=== PATIENT | male | born 1930 | race Caucasian/White ===

== ENCOUNTER → 2016-11-10 | Outpatient (REF) | payer MEDICARE, OTHER ==
[~2016-11-10] MED LIST: /ASCO250TA OR; /FENO14TA PO; /TAMS4CA PO; ALLO100T PO; ALLO300T2 PO; ASPI325T PO; ASPI81TA85 PO; ATEN50TA2 PO; CRES5TAB PO; DIGO0.126 OR; DILA100C PO; ENAL20TA PO; GLIP5TAB2 PO; MAXZTA PO; METF1000 PO; NICA20CA OR; OMEP40CA2 PO; SENO8.6T9 OR; TRIAMTERENE PO; TYLE325T5 PO
== END ==
LOC: M SFHCPLAZ 11:51
PROVIDERS: ATTEND Dermatology
DX: C44.519 Basal cell carcinoma of skin of other part of trunk (principal)
CPT/HCPCS: 11100; 88305; G0463

== ENCOUNTER → 2016-12-15 | Outpatient (REF) | payer MEDICARE, OTHER ==
[2016-12-15 16:10] LABS: FREE T4 0.78 NG/DL (0.76-1.46)
== END | disposition home or self-care (01) ==
LOC: M SFHCPLAZ 12:45
PROVIDERS: ATTEND Family Medicine
DX: I73.00 Raynaud's syndrome without gangrene (principal); E11.9 Type 2 diabetes mellitus without complications; E78.5 Hyperlipidemia, unspecified

== ENCOUNTER → 2016-12-21 | Outpatient (REF) | payer MEDICARE, OTHER | LOC: M LAB REF 16:23 | PROVIDERS: ATTEND Surgery | DX: C44.519 Basal cell carcinoma of skin of other part of trunk (principal) ==

== ENCOUNTER → 2017-02-25 | Outpatient (REF) | payer MEDICARE, OTHER ==
[2017-02-25 16:44] LABS: CALCIUM LEVEL 9.2 MG/DL (8.8-10.2); CREATININE FOR GFR 1.89 MG/DL (0.70-1.30); GLOMERULAR FILTRATION RATE 36.2 (>35); POTASSIUM SERUM 4.2 MEQ/L (3.5-5.1)
== END ==
LOC: M SFHCPLAZ 12:57
PROVIDERS: ATTEND Family Medicine
DX: R60.0 Localized edema (principal)
CPT/HCPCS: 36415; 80048; 83880; G0463

== ENCOUNTER → 2017-03-09 | Outpatient (REF) | payer MEDICARE, OTHER ==
[2017-03-09 17:39] LABS: CALCIUM LEVEL 8.4 MG/DL (8.8-10.2); CREATININE FOR GFR 1.95 MG/DL (0.70-1.30); GLOMERULAR FILTRATION RATE 34.9 (>35); POTASSIUM SERUM 3.6 MEQ/L (3.5-5.1)
== END ==
LOC: M SFHCPLAZ 14:46
PROVIDERS: ATTEND Family Medicine
DX: I87.8 Other specified disorders of veins (principal)
CPT/HCPCS: 36415; 80048; G0463

== ENCOUNTER → 2017-05-03 | Outpatient (REF) | payer MEDICARE, BC, OTHER ==
[~2017-05-03] MED LIST changes: +ASCO250T PO; +BETI1SOL OU; +CHLO50TA PO; +FEBU40TA PO; +FERR1TAB8 PO; +FLOM5CAP PO; +MAG400TA PO; +METF500T13 PO; +ROSU10TA2 PO; +SPIR25TA2 PO; +TRAV04OPD OU; +XARE15TA PO
[2017-05-03 18:28] LABS: CALCIUM LEVEL 8.8 MG/DL (8.8-10.2); CREATININE FOR GFR 1.58 MG/DL (0.70-1.30); GLOMERULAR FILTRATION RATE 44.4 (>35); POTASSIUM SERUM 3.5 MEQ/L (3.5-5.1)
== END ==
LOC: M SFHCPLAZ 14:20
PROVIDERS: ATTEND Family Medicine
DX: R60.0 Localized edema (principal)
CPT/HCPCS: 80048; 83880; G0463

== ENCOUNTER 2017-07-06 12:01 | Inpatient (IN) | payer MEDICARE, BC, OTHER ==
[~2017-07-06] VITALS: Ht 182.9 cm; Wt 92.8 kg
[2017-07-06] MEDS: FEBUXOSTAT 40 MG TABLET (ULORIC) PO SCH (09:00)
[2017-07-06] MEDS: TIMOLOL MALEATE 0.25% OPHTH SOLN 5 ML OU SCH (09:00)
[~2017-07-06 12:01] MED LIST changes: -ASCO250T PO; -BETI1SOL OU; -CHLO50TA PO; -FEBU40TA PO; -FERR1TAB8 PO; -FLOM5CAP PO; -MAG400TA PO; -METF500T13 PO; -ROSU10TA2 PO; -SPIR25TA2 PO; -TRAV04OPD OU; -XARE15TA PO
[2017-07-06] MEDS ORDERED: NS 500 ML IV ONE ×2 (12:30→14:00)
[2017-07-06] MEDS ORDERED: ACETAMINOPHEN TAB 650MG DOSE (2X325MG) PO ONE (12:30)
[2017-07-06 13:05] LABS: ADD MORPHOLOGY? YES; BASO % 0.1 % (0.0-1.0); EOS % 0.3 % (0.0-3.0); LARGE UNSTAINED CELL # 0.1 K/mm3 (0.0-0.4); LARGE UNSTAINED CELL % 0.5 % (0.0-4.0); LYMPH # 0.1 K/mm3 (1.5-4.5); LYMPH % 1.2 % (24.0-44.0); MEAN CORPUSCULAR HEMOGLOBIN 22.1 pg (27.0-33.0); MEAN CORPUSCULAR HGB CONC 30.6 g/dl (32.0-36.5); MEAN CORPUSCULAR VOLUME 72.3 fl (80.0-96.0); MONO # 0.4 K/mm3 (0.0-0.8); NEUTROPHILS # 9.7 K/mm3 (1.8-7.7); NEUTROPHILS % 93.9 % (36.0-66.0); PLATELET COUNT, AUTOMATED 129 k/mm3 (150-450); RED CELL DISTRIBUTION WIDTH 17.9 % (11.5-14.5); WHITE BLOOD COUNT 10.4 K/mm3 (4.0-10.0)
[2017-07-06 13:06] LABS: INR 1.64
--- NOTE | 2017-07-06 13:18 | REP ---
Chest two views HISTORY: Sepsis Comparison: 02/18/2014 The lungs are clear. The cardiac silhouette is enlarged. The pulmonary vasculature is normal in appearance. The bony structure is intact. A cardiac pacemaker is present. IMPRESSION: Cardiomegaly. Signed by Kory Montana MD 07/06/2017 01:10 P
[2017-07-06 13:26] LABS: ALBUMIN 3.6 GM/DL (3.2-5.2); ALBUMIN/GLOBULIN RATIO 1.16 (1.00-1.93); ALKALINE PHOSPHATASE 113 U/L (45-117); ALT/SGPT 32 U/L (12-78); ANION GAP 11 MEQ/L (8-16); AST/SGOT 22 U/L (15-37); BILIRUBIN,DIRECT 0.3 MG/DL (0.0-0.2); BILIRUBIN,TOTAL 0.9 MG/DL (0.2-1.0); BLOOD UREA NITROGEN 61 MG/DL (7-18); CARBON DIOXIDE LEVEL 24 MEQ/L (21-32); CHLORIDE LEVEL 107 MEQ/L (98-107); CREATININE FOR GFR 2.42 MG/DL (0.70-1.30); GLOMERULAR FILTRATION RATE 27.1 (>35); GLUCOSE, FASTING 223 MG/DL (83-110); POTASSIUM SERUM 3.5 MEQ/L (3.5-5.1); SODIUM LEVEL 142 MEQ/L (136-145); TOTAL PROTEIN 6.7 GM/DL (6.4-8.2)
[2017-07-06] MEDS ORDERED: XARE15TA PO (13:26)
[2017-07-06] MEDS ORDERED: CHLO50TA PO (13:26)
[2017-07-06] MEDS ORDERED: FEBU40TA PO (13:26)
[2017-07-06] MEDS ORDERED: TRAV04OPD OU (13:28)
[2017-07-06] MEDS ORDERED: SPIR25TA2 PO (13:28)
[2017-07-06] MEDS ORDERED: BETI1SOL OU (13:28)
[2017-07-06] MEDS ORDERED: METF500T13 PO (13:28)
[2017-07-06 13:29] LABS: MICROCYTOSIS 2+
--- NOTE | 2017-07-06 13:40 | REP ---
RIGHT FOOT SERIES: Two views. HISTORY: Sepsis. Shock. COMPARISON STUDY: June 25, 2013. FINDINGS: There is a moderate hallux valgus deformity. Fairly extensive vascular calcification is noted. 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 These findings are unchanged from the comparison radiographs. No soft tissue gas is seen. 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 No soft tissue gas or acute bony erosive change is seen. Signed by Santo Bragg MD 07/06/2017 01:44 P
[2017-07-06] MEDS ORDERED: CLINDAMYCIN 600 MG in APPROPRIATE DILUENT 1 EA IV ONE (14:00)
--- NOTE | 2017-07-06 14:13 | HPEPDOC ---
Medical History and Physical Date of Admission 07/06/17 History and Physical ATTENDING: Dr. Campos PCP: Dr Hilda Pedersen Capacity Planner Dr Gottlieb Quill Skinner Dr Oneil CC: foot pain HPI: 87yoM with a past medical history significant for PVD, Afib, CHB with pacemaker, HTN, CKD4, who states he began to have foot pain around 2 AM. Pt states poor appetite, nausea, increased BS for past 3 days, generally feeling weak, and chills. No recent falls or injury. Denies any PRINGLE, CP, SOB, cough, palpitations, abdominal pain, V/D or changes in bowel or bladder habits. Upon presentation to the hospital the patient was found to have cellulitis Rt foot, thus the hospitalist team was consulted. PMHx: Rt heart failure TTE 2013. EF 65% MOD MR/MAC, Mild TR. Severe Pulm HTN Afib. On Xarelto. LBBB CHB/Pacemaker HTN LVH DM HLD Gout BPH/H/O TURP CKD4 Baseline 1.6-1.9 PVD Glaucoma H/O unsteady gait/fall/Seizure/SDH 2012 PSHX: Appendectomy 1958 Pacemaker 02/2014 TURP SOCHX: Resides in: [facility] Marital Status: Kids: 5 Tobacco use:denies ETOH: denies Illicit Drugs: Denies Recent travel: none Advanced directives: none FAMHX: Mother: Father: [place] Siblings: 2 sisters, 1 brother [place] Children: Alive, well Unexpected deaths due to medical reasons: None. ROS: As noted in HPI, otherwise 11pt ROS of systems reviewed and unremarkable. PE: GEN: 87yoM, appears stated age. Well-nourished, well developed. No acute distress. Alert and oriented x 3. HEENT: Normocephalic, atraumatic. Pupils are equal, round, and reactive to light. Extraocular movements are intact. No nystagmus appreciated. Sclera are nonicteric. Conjunctiva without injection. Nose midline. Nasal turbinates without bogginess. EACs both patent BL. TMs both visualized and shirley with good cone of light, no bulging or erythema. No facial asymmetry. Moist mucous membranes. Pharynx pink and moist, no cobblestoning. Neck supple, trachea midline. No lymphadenopathy or thyromegaly appreciated. CHEST: Regular rate and rhythm, +S1, +S2 2/6 systolic murmur noted LUNGS: Clear to auscultation bilaterally. No wheezes, rales, or rhonchi. Breathing appears symmetric and easy. Patient is speaking in full sentences. No accessory muscle use. ABD: Round, soft, non-tender, non-distended. +Bowel sounds throughout. No rebound or guarding. No costovertebral angle tenderness. EXT: Pulses 2+ bilaterally dorsalis pedis and radial. Trace distal pretib edema appreciated. SKIN: [place], dry, warm. Dorsal aspect Rt foot with erythema and warmth noted extending to mid pretibial area. Rt second toe with erythema and edema, black discoloration noted distally. NEURO: Alert and oriented x 3. Cranial nerves III-XII are intact. No focal deficits appreciated. CXR: The lungs are clear. The cardiac silhouette is enlarged. The pulmonary vasculature is normal in appearance. The bony structure is intact. A cardiac pacemaker is present. XR Rt foot There is a moderate hallux valgus deformity. Fairly extensive vascular calcification is noted. 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 These findings are unchanged from the comparison radiographs. No soft tissue gas is seen. No acute bony erosive change is seen EKG: paced BLOOD CULTURES: x 2 pending UC pending. WC pending LA 4.0 A&P: 87yoM with a past medical history significant for PVD, Afib, CHB with pacemaker, HTN, CKD4, who states he began to have foot pain around 2 AM. Pt states poor appetite, nausea, increased BS for past 3 days, generally feeling weak, and chills. No recent falls or injury. 1. The patient will be admitted to PCU for at least [address] Campos 's service. Pt is discussed with Dr Tellez. 2. Rt LE cellulitis. BC x 2 pending. WC pending. TTE pending. Recheck LA. Add ESR/CRP, monitor daily. U/S LEs pending. S/P 1 liter IVF in ED, continue gentle hydration NS at 80cc/hr. Initiate broad spectrum antibiotics IV Vanco/Zosyn. Request opinion from Dr Geller, he is aware and will see pt. 3. CKD4. Clt nephrology, Dr Jony aware and will see pt. IVF x 1 liter in ED , NS at 80cc/hr. Renal U/S pending. 4. H/O Rt HF. TTE pending. HOLD chlorthalidone/Aldactone for now. Caution with IVF, gentle hydration as above. 5. H/O MR/TR/Pulm HTN. TTE pending. 6. NIDDM. CC diet. Metformin on hold. SSI. 7. Chronic Afib/CHB/Pacemaker. PCU/TM. Xarelto held related to CKD. Heparin gtt initiated. 8. BPH. Flomax. 9. Glaucoma Continue outpt regimen. 10. Gout. On Uloric. 11. Anemia. Daily CBC. Fe studies/B12/folate pending. Stool OB pending. DVT prophylaxis. Heparin gtt initiated. The patient is a Full code Vital Signs Vital Signs Date Time Temp Pulse Resp B/P (MAP) Pulse Ox O2 Delivery O2 Flow Rate FiO2 07/06/17 14:00 101.2 91 16 106/52 (70) 95 Room Air Laboratory Data Labs 24H Laboratory Tests 2 07/06/17 12:46: White Blood Count 10.4H, Red Blood Count 3.79L, Hemoglobin 8.4L, Hematocrit 27.4L, Mean Corpuscular Volume 72.3L, Mean Corpuscular Hemoglobin 22.1L, Mean Corpuscular Hemoglobin Concent 30.6L, Red Cell Distribution Width 17.9H, Platelet Count 129L, Neutrophils (%) (Auto) 93.9H, Lymphocytes (%) (Auto) 1.2L, Monocytes (%) (Auto) 4.0, Eosinophils (%) (Auto) 0.3, Basophils (%) (Auto) 0.1, Neutrophils # (Auto) 9.7H, Lymphocytes # (Auto) 0.1L, Monocytes # (Auto) 0.4, Eosinophils # (Auto) 0.0, Basophils # (Auto) 0.0, Large Unclassified Cells % 0.5 , Large Unclassified Cells # 0.1, Platelet Estimate DECREASED, Microcytosis 2+, Prothrombin Time 19.9H, Prothromb Time International Ratio 1.64, Activated Partial Thromboplast Time 34.2, Anion Gap 11, Glomerular Filtration Rate 27.1L, Lactic Acid Level 4.0*H, Calcium Level 9.0, Aspartate Amino Transf (AST/SGOT) 22 , Alanine Aminotransferase (ALT/SGPT) 32, Alkaline Phosphatase 113, Total Bilirubin 0.9, Direct Bilirubin 0.3H, Total Creatine Kinase 26L, Creatine Kinase MB 1.0, Creatine Kinase MB Relative Index 3.84, Troponin I < 0.02, Total Protein 6.7, Albumin 3.6, Albumin/Globulin Ratio 1.16 CBC/BMP Laboratory Tests 07/06/17 12:46 Red Blood Count 3.79 L, Mean Corpuscular Volume 72.3 L, Mean Corpuscular Hemoglobin 22.1 L, Mean Corpuscular Hemoglobin Concent 30.6 L, Red Cell Distribution Width 17.9 H, Neutrophils (%) (Auto) 93.9 H, Lymphocytes (%) (Auto ) 1.2 L, Monocytes (%) (Auto) 4.0, Eosinophils (%) (Auto) 0.3, Basophils (%) ( Auto) 0.1, Neutrophils # (Auto) 9.7 H, Lymphocytes # (Auto) 0.1 L, Monocytes # ( Auto) 0.4, Eosinophils # (Auto) 0.0, Basophils # (Auto) 0.0 Microbiology Microbiology 07/06/17 Blood Culture, Received Pending 07/06/17 Blood Culture, Received Pending Home Medications Scheduled Ascorbic Acid (Ascorbic Acid) 250 Mg Tab, 250 MG PO BID Chlorthalidone (Chlorthalidone) 50 Mg Tab, 100 MG PO DAILY Febuxostat (Uloric) 40 Mg Tab, 40 MG PO DAILY Metformin Hydrochloride (Metformin HCl) 500 Mg Tab, 500 MG PO QPM DINNER Rivaroxaban (Xarelto) 15 Mg Tab, 15 MG PO QPM Rosuvastatin Calcium (Rosuvastatin Calcium) 10 Mg Tab, 10 MG PO QWEEK MONDAYS Spironolactone (Spironolactone) 25 Mg Tab, 25 MG PO DAILY Tamsulosin Hydrochloride (Flomax) 0.4 Mg Cap, 0.4 MG PO QHS Timolol Base (Betimol) 0.25 % Melody, 1 DROP OU DAILY Travoprost (Travatan Z) 50 Drop/2.5 Ml Soln, 1 DROP OU QHS Allergies Coded Allergies: Brimonidine (Verified Allergy, Unknown, 03/12/15) GME ATTESTATION GME ATTESTATION My preceptor for this patient encounter was physically present in the building during the encounter and was fully available. As needed, all aspects of the patient interview, examination, medical decision making process, and medical care plan development were reviewed and approved by the preceptor. Preceptor is aware and concurs with the plan as stated in the body of this note and will attest to such by his/her cosignature. ATTENDING NOTE I have both independently examined this patient as well as reviewed the note. I have discussed in detail with the resident the findings and plan of treatment as documented in the note. I will continue to follow the patient and offer further guidance to the patients care as necessary during this hospital stay. Jessica Corona MD Jul 06, 2017 14:13 ARSH TELLEZ MD Jul 07, 2017 12:09
[2017-07-06] MEDS ORDERED: ROSU10TA2 PO (14:32)
[2017-07-06] MEDS ORDERED: FLOM5CAP PO (14:32)
[2017-07-06] MEDS ORDERED: ASCO250T PO (14:32)
[2017-07-06] MEDS ORDERED: POTASSIUM CHLORIDE 10 MEQ SR TABLET PO ONE (14:45)
[2017-07-06] MEDS ORDERED: DEXTROSE 50% 50 ML SYRINGE IV PRN (15:00)
[2017-07-06] MEDS ORDERED: GLUCOSE 4 GM CHEW TABLET PO PRN (15:00)
[2017-07-06] MEDS ORDERED: PERCOCET 5MG/325MG TAB PO PRN (15:00)
[2017-07-06] MEDS ORDERED: HEPARIN SOD (PORCINE) 5000 UNITS/ML VIAL IV PRN (15:00)
[2017-07-06] MEDS ORDERED: MORPHINE 2 MG/ML 1ML SYRINGE IV PRN (15:00)
[2017-07-06] MEDS ORDERED: GLUCAGON FOR INJ 1 MG VIAL (J1610) SC PRN (15:00)
[2017-07-06] MEDS ORDERED: ONDANSETRON 4MG/2ML VIAL (J2405) IV PRN (15:00)
[2017-07-06] MEDS ORDERED: VANCOMYCIN HCL 750 MG, VIAL MATE ADAPTER 1 EACH in D5W 250 ML IV SCH (15:00)
[2017-07-06] MEDS: NS 1,000 ML IV SCH (15:05)
[2017-07-06 15:32] LABS: RETIC HEMOGLOBIN CONTENT CHr 24.1 PG (24-36); RETICULOCYTE ABSOLUTE ADVIA212 108 x10(9)/L (17-77)
[2017-07-06 15:39] LABS: REASON FOR REVIEW ANEMIA / RBC MORPH
--- NOTE | 2017-07-06 15:47 | REP ---
Right lower extremity Duplex Doppler venous ultrasound: Real time compression and duplex Doppler interrogation of the right lower extremity deep venous system is performed. The right common femoral, superficial femoral and popliteal veins are fully compressible with transducer pressure and demonstrate normal spontaneous and phasic flow, without evidence of deep venous thrombosis. Impression: No evidence of deep venous thrombosis of the right lower extremity femoral popliteal venous system. Incidental note is made of a right inguinal lymph node measuring 4.1 x 1.0 x 2.5 cm. Signed by Fred Fung MD 07/06/2017 03:40 P
[2017-07-06 15:50] LABS: PERCENT SATURATION 9.4 % (19.7-50.0)
[2017-07-06 15:58] LABS: FOLATE 15.3 NG/ML (>5.4)
--- NOTE | 2017-07-06 16:05 | REP ---
Urinary tract sonography: History: Renal insufficiency. Findings: Scanning at the level of the urinary bladder shows no abnormality. Renal cortical echogenicity pattern is increased consistent with chronic medical renal disease. No hydronephrosis is seen on either side. No masses seen. There is a cyst at the lower pole left kidney measuring 2.7 x 2.7 x 2.3 cm. There is a 1.1 cm cyst at the right mid kidney. These appears sonographically simple. Right renal dimensions are 11.4 x 5.9 x 5.1 cm. The left kidney measures 12.3 x 5.6 x 6.7 cm. No other abnormality. Impression: 1. Increased renal cortical echogenicity consistent with chronic medical renal disease. 2. There is a 2.7 cm cyst in the left kidney and a 1.1 cm cyst in the right kidney. Otherwise negative. Signed by Santo Bragg MD 07/06/2017 05:07 P
[2017-07-06 16:06] LABS: ERYTHROCYTE SEDIMENTATION RATE 32 mm/hr (0-30)
[2017-07-06] MEDS: PIPERACILLIN/TAZOBACTAM SOD 2.25 GM in D5W MINI-BAG PLUS 50 ML IV SCH (16:24)
--- NOTE | 2017-07-06 16:26 | PHACANCOPD ---
PHARMACY VANCOMYCIN DOSING Pt Demographics Demographics Patient Age:87 , Weight:90.900 , Gender: male Adjusted Body Weight Date: 07/06/17, Adjusted Body Weight: Kg Events Past 24 Hours Events Past 24 Hours: YES: Fever, Elevation in WBC, Pending Diagnostics Vancomycin Vancomycin indication: cellulitis Vancomycin Target Ranges: 15-20 mcg/ml Vancomycin Load Y/N: No Load Dose Date Time Vancomycin Load Dose: Date: Time: Vancomycin Dose Date: 07/06/17. Current Vancomycin Dose: [1g IV Q24H] Intermittent Dosing?: No Labs Labs Item Value Date Time White Blood Count 10.4 K/mm3 H 07/06/17 1246 Erythrocyte Sedimentation Rate 32 mm/hr H 07/06/17 1246 Lactic Acid Level 4.0 MMOL/L *H 07/06/17 1246 C-Reactive Protein, Quantitative 4.89 MG/DL H 07/06/17 1246 Creatinine 2.42 MG/DL H 07/06/17 1246 Micro Microbiology 07/06/17 Blood Culture, Received Pending 07/06/17 Blood Culture, Received Pending 07/06/17 Group A Streptococcus Screen (FREDERICK), Received Pending Creatinine Clearance Date:07/06/17. Estimated Creatinine Clearance: [~23ml/min]. Assessment and Plan Maintaining Current Dose?: Yes Reason for dose change: No Dose Change Pharmacist Note Pharmacist Note Date: 07/06/17. Pharmacist note: Day #1 empiric zosyn/vancomycin tx initiated at 1g IV Q24H for the treatment of RLE cellulitis - aiming for a goal trough of 15- 20mcg/ml. WBC is slightly elevated, LA and CRP are both elevated, and the patient is febrile. The patient has a PMH of stage IV CKD with a baseline scr ~ 1.58. No PMH of MRSA or vanco use here at [facility]. We will continue to monitor the patient and schedule a trough level accordingly. ARNOLDO [facility]X [facility] Jul 06, 2017 16:26
[2017-07-06] MEDS: LACTOBACILLUS ACIDOPHILUS CAP (BACID) PO SCH ×2 (16:33→20:33)
[2017-07-06] MEDS: HEPARIN DRIP 25,000 UNITS in APPROPRIATE DILUENT 1 EA IV SCH ×2 (16:42→20:32)
[2017-07-06] MEDS: VANCOMYCIN HCL 1,000 MG, VIAL MATE ADAPTER 1 EACH in D5W 250 ML IV SCH (17:00)
[2017-07-06] MEDS: HumaLOG INSULIN (NovoLOG) PER UNIT SC SCH ×2 (17:58→21:00)
[2017-07-06 19:26] VITALS: BP 129/59
[2017-07-06] MEDS: LATANOPROST 0.005% OPHTH SOLN 2.5 ML OU SCH (20:33)
[2017-07-06] MEDS: TAMSULOSIN 0.4 MG CAP PO SCH (20:33)
[2017-07-06] MEDS: ASCORBIC ACID 250 MG TAB PO SCH (20:33)
[2017-07-06] MEDS: FERROUS SULFATE 325MG TAB PO SCH (20:33)
[2017-07-06] MEDS: SENOKOT S TAB PO SCH (20:33)
[2017-07-06] MEDS: ACETAMINOPHEN TAB 650MG DOSE (2X325MG) PO PRN (21:45)
[2017-07-06 23:35] VITALS: BP 114/55
[2017-07-07] MEDS: PIPERACILLIN/TAZOBACTAM SOD 2.25 GM in D5W MINI-BAG PLUS 50 ML IV SCH ×3 (01:09→16:00)
[2017-07-07 03:56] VITALS: BP 109/53
[2017-07-07 04:34] LABS: ALBUMIN 2.9 GM/DL (3.2-5.2); ALBUMIN/GLOBULIN RATIO 1.07 (1.00-1.93); BILIRUBIN,TOTAL 0.8 MG/DL (0.2-1.0); CALCIUM LEVEL 8.2 MG/DL (8.8-10.2); CREATININE FOR GFR 2.31 MG/DL (0.70-1.30); GLOMERULAR FILTRATION RATE 28.6 (>35); MAGNESIUM LEVEL 1.7 MG/DL (1.8-2.4); POTASSIUM SERUM 3.3 MEQ/L (3.5-5.1); TOTAL PROTEIN 5.6 GM/DL (6.4-8.2)
[2017-07-07 04:44] LABS: MEAN CORPUSCULAR HEMOGLOBIN 22.6 pg (27.0-33.0); MEAN CORPUSCULAR HGB CONC 31.6 g/dl (32.0-36.5); MEAN CORPUSCULAR VOLUME 71.4 fl (80.0-96.0); RED CELL DISTRIBUTION WIDTH 17.9 % (11.5-14.5); WHITE BLOOD COUNT 11.3 K/mm3 (4.0-10.0)
[2017-07-07] MEDS ORDERED: POTASSIUM CHLORIDE 10 MEQ SR TABLET PO ONE (07:15)
[2017-07-07] MEDS: NS 1,000 ML IV SCH ×2 (07:40→14:45)
[2017-07-07 08:00] VITALS: BP 120/59
[2017-07-07] MEDS: LACTOBACILLUS ACIDOPHILUS CAP (BACID) PO SCH ×3 (08:18→21:27)
[2017-07-07] MEDS: HumaLOG INSULIN (NovoLOG) PER UNIT SC SCH ×4 (08:18→21:28)
[2017-07-07] MEDS: FEBUXOSTAT 40 MG TABLET (ULORIC) PO SCH (08:18)
[2017-07-07] MEDS: ASCORBIC ACID 250 MG TAB PO SCH (08:19)
[2017-07-07] MEDS: SENOKOT S TAB PO SCH ×2 (08:19→21:00)
[2017-07-07] MEDS: FERROUS SULFATE 325MG TAB PO SCH ×2 (08:19→21:27)
[2017-07-07] MEDS: TIMOLOL MALEATE 0.25% OPHTH SOLN 5 ML OU SCH (08:22)
--- NOTE | 2017-07-07 10:08 | CR ---
DATE OF CONSULTATION: 07/07/2017 LOCATION: 3rd floor, room 3230. CHIEF COMPLAINT: The patient states that he has a painful right foot and yesterday had considerable pain and went to the emergency room and was admitted for cellulitis of the toe and lower extremity. He is seen today on referral for evaluation. PAST MEDICAL HISTORY: 1. Right heart failure. 2. Atrial fibrillation. 3. Left bundle branch block. 4. Hypertension. 5. Diabetes. 6. Gout. 7. Glaucoma. PAST SURGICAL HISTORY: 1. Appendectomy. 2. Pacemaker insertion. 3. Transurethral resection of prostate (TURP). ALLERGIES: RIMANTADINE. AT HOME MEDICATIONS: - ascorbic acid 250 mg - chlorthalidone 50 mg - Uloric 40 mg - metformin 500 mg - Xarelto 15 mg - rosuvastatin 10 mg - spironolactone 25 mg - Fosamax 0.4 mg - timolol 0.25% solution - Travatan Z 50 mg drops Evaluation of the patient's right lower extremity reveals an ulceration present on the distal tip of the second toe with blister formation on the dorsal aspect of the second toe of the right foot, redness extends circumferentially around the toe. There is an area of ascending cellulitis on the lower aspect of the patient's right lower extremity extending dorsal past the ankle. The dorsalis pedis and posterior tibial pulses are not palpable on the lower extremities. The patient does have a popliteal pulse on the right side. The patient has a fixed valgus position of the subtalar joint with arthritis through the mid foot. Fixed and rigid hammertoe deformities are noted to digits 2, 3, 4, and 5 of the right foot. After appropriate time out, informed consent was obtained and signed by the patient. Utilizing a sterile curette, the distal aspect of the ulcer was debrided and approximately 0.5 mL of purulent discharge was expressed, utilizing a sterile curette, the necrotic tissue in that area, deep to the hyperkeratotic tissue, was debrided and sent to bacteriology for aerobic and anaerobic examination. After debridement, the ulcer measured 1.0 cm from medial to lateral, 0.5 cm from distal to proximal, and a depth of 0.2 cm. This did not extend down to the bone and there was a good granulation tissue base after debridement. There was a hyperkeratotic rim measuring 0.2 cm on the distal tip of the second toe. Dry sterile dressing was applied to the patient's right foot. Orders written for aerobic and anaerobic cultures, bandage changes to the patient's right extremity consisting of mupirocin with a dressing twice a day. His questions were answered. Thank you for this consultation.
[2017-07-07 12:00] VITALS: BP 117/58
[2017-07-07] MEDS ORDERED: MAGNESIUM OXIDE 400 MG TAB (MAG-OX) PO ONE (13:00)
[2017-07-07] MEDS: MUPIROCIN 2% OINT 22 GM TUBE TOP SCH (14:00)
[2017-07-07] MEDS: VANCOMYCIN HCL 1,000 MG, VIAL MATE ADAPTER 1 EACH in D5W 250 ML IV SCH (17:00)
[2017-07-07 20:00] VITALS: BP 133/63
[2017-07-07] MEDS: LATANOPROST 0.005% OPHTH SOLN 2.5 ML OU SCH (21:27)
[2017-07-07] MEDS: TAMSULOSIN 0.4 MG CAP PO SCH (21:27)
[2017-07-08] VITALS: BP 137/63
[2017-07-08] MEDS: PIPERACILLIN/TAZOBACTAM SOD 2.25 GM in D5W MINI-BAG PLUS 50 ML IV SCH ×3 (02:06→16:15)
[2017-07-08] MEDS: NS 1,000 ML IV SCH (03:30)
[2017-07-08 04:00] VITALS: BP 134/65
[2017-07-08] MEDS: MUPIROCIN 2% OINT 22 GM TUBE TOP SCH ×2 (04:56→09:00)
[2017-07-08] MEDS: ACETAMINOPHEN TAB 650MG DOSE (2X325MG) PO PRN (04:56)
--- NOTE | 2017-07-08 05:52 | ECGEPIP ---
Stationary ECG Study [facility] - ED Test Date: 2017-07-06 Pat Name: WILLIAM SHERWOOD Department: Room: - Gender: M Riding Instructor: jt : 1930 Requested By: DARIEN Herrmann Order Number: [id number] Reading MD: Manohar Rudd Measurements Intervals Ruby Rate: 88 P: NV: 0 QRS: -53 QRSD: 182 T: 114 QT: 433 QTc: 524 Interpretive Statements ELECTRONIC VENTRICULAR PACEMAKER SIMILAR TO 02/07/14 Electronically Signed On 07-08-2017 5:51:28 EDT by Manohar Rudd
[2017-07-08 05:53] LABS: MEAN CORPUSCULAR HEMOGLOBIN 22.5 pg (27.0-33.0); MEAN CORPUSCULAR HGB CONC 31.1 g/dl (32.0-36.5); MEAN CORPUSCULAR VOLUME 72.3 fl (80.0-96.0); RED CELL DISTRIBUTION WIDTH 18.5 % (11.5-14.5)
[2017-07-08 06:22] LABS: ALBUMIN 2.8 GM/DL (3.2-5.2); ALBUMIN/GLOBULIN RATIO 0.93 (1.00-1.93); BILIRUBIN,TOTAL 0.6 MG/DL (0.2-1.0); CALCIUM LEVEL 8.2 MG/DL (8.8-10.2); CREATININE FOR GFR 2.15 MG/DL (0.70-1.30); GLOMERULAR FILTRATION RATE 31.1 (>35); MAGNESIUM LEVEL 1.9 MG/DL (1.8-2.4); POTASSIUM SERUM 3.6 MEQ/L (3.5-5.1); TOTAL PROTEIN 5.8 GM/DL (6.4-8.2)
[2017-07-08] MEDS: HumaLOG INSULIN (NovoLOG) PER UNIT SC SCH ×4 (07:49→21:08)
[2017-07-08 08:00] VITALS: BP 118/64
[2017-07-08] MEDS: FERROUS SULFATE 325MG TAB PO SCH ×2 (09:00→21:03)
[2017-07-08] MEDS: LACTOBACILLUS ACIDOPHILUS CAP (BACID) PO SCH ×3 (09:00→21:03)
[2017-07-08] MEDS: TIMOLOL MALEATE 0.25% OPHTH SOLN 5 ML OU SCH (09:01)
[2017-07-08] MEDS: SENOKOT S TAB PO SCH ×2 (09:02→21:09)
[2017-07-08 09:56] LABS: RETIC HEMOGLOBIN CONTENT CHr 24.4 PG (24-36); RETICULOCYTE % 3.2 % (0.5-1.5)
[2017-07-08 10:13] LABS: PERCENT SATURATION 6.5 % (19.7-50.0)
--- NOTE | 2017-07-08 11:22 | PHACANCOPD ---
PHARMACY VANCOMYCIN DOSING Pt Demographics Demographics Patient Age:87 , Weight:91.300 , Gender: male Adjusted Body Weight Date: 07/06/17, Adjusted Body Weight: Kg Vancomycin Vancomycin indication: cellulitis Vancomycin Target Ranges: 15-20 mcg/ml Vancomycin Load Y/N: No Load Dose Date Time Vancomycin Load Dose: Date: Time: Vancomycin Dose Date: 07/06/17. Current Vancomycin Dose: [1g IV Q24H] Intermittent Dosing?: No Labs Micro Microbiology 07/06/17 Blood Culture - Preliminary, Resulted No growth after 24 hours . All specim... 07/06/17 Blood Culture - Preliminary, Resulted No growth after 24 hours . All specim... 07/06/17 Group A Streptococcus Screen ([facility]ERICK) - Final, Complete 07/06/17 Urine Culture - Final, Complete 07/07/17 Wound Culture, Received Pending 07/07/17 Anaerobic Culture, Received Pending Creatinine Clearance Date:07/06/17. Estimated Creatinine Clearance: [~23ml/min]. Assessment and Plan Maintaining Current Dose?: Yes Reason for dose change: No Dose Change Pharmacist Note Pharmacist Note 07/08/17: The patient's scr today is 2.15, which is improved from 2.42 on admit. I will schedule a trough to be drawn today at 1600, prior to the 3rd dose, to ensure adequate monitoring given the patient's kidney function. We will continue to monitor and make dose adjustments if needed. Date: 07/06/17. Pharmacist note: Day #1 empiric zosyn/vancomycin tx initiated at 1g IV Q24H for the treatment of RLE cellulitis - aiming for a goal trough of 15- 20mcg/ml. WBC is slightly elevated, LA and CRP are both elevated, and the patient is febrile. The patient has a PMH of stage IV CKD with a baseline scr ~ 1.58. No PMH of MRSA or vanco use here at [facility]. We will continue to monitor the patient and schedule a trough level accordingly. ARNOLDO MARX PHARMACY Jul 08, 2017 11:22
[2017-07-08 11:47] LABS: FOLATE 9.8 NG/ML (>5.4)
[2017-07-08 12:00] VITALS: BP 120/69
[2017-07-08] MEDS: FEBUXOSTAT 40 MG TABLET (ULORIC) PO SCH (14:37)
--- NOTE | 2017-07-08 19:18 | ECHO ---
DATE OF PROCEDURE: 07/08/2017 AGE: 87 GENDER: Male HEIGHT: 72 inches WEIGHT: 200 pounds BODY SURFACE AREA: 2.13 sq m INPATIENT: PCU, room 3230 REFERRING PHYSICIAN: Dr. Brown INDICATION: Fever. Known valvular heart disease. 2D MEASUREMENTS: RV: 5.7 cm LV: 5.1 cm Septum: 1.3 cm Posterior wall: 1.2 cm Aortic root: 3.5 cm LA: 5.4 cm LVEF: 60% DOPPLER MEASUREMENTS: AV: 0.9 m/s LVOT: 0.5 m/s LVOT diameter: 2.7 cm MV-E: 88 Early mitral deceleration time: 176 ms E prime: 8, E/A prime ratio: 11 PV: 0.5 m/s Pulmonary artery acceleration time: 77 ms RVSP: 70 mmHg. IVC: 2.7 cm COMMENTS: Normal sinus rhythm with atrial sensing and tracking with consistent ventricular paced QRS complexes having and LBBB configuration. Prominently dilated left and right atria. Normal left ventricular size. The right ventricle was moderately dilated. Left ventricle (LV) wall thickness was mildly increased symmetrically. On real-time imaging from the parasternal and projections there appear to be a localized mild septal hypokinesis believed to be related to right ventricular pacing. Other left ventricular wall segments move normally. Mild to moderate mitral annular calcification with normal leaflet thickness and excursion with no posterior systolic buckling. Three equal size aortic cusps with a mildly thickened cusp edges but adequate cusp separation. Normal aortic root size. No obvious pedunculated mass or vegetation. No pericardial effusion. Pacing leads could be visualized traversing right heart chambers. Color flow Doppler study taken from the parasternal and apical projection showed mild - moderate mitral and moderately severe tricuspid but no aortic insufficiency. Guided continuous wave Doppler of his aortic valve showed a normal peak systolic velocity against LV outflow tract obstruction. Pulsed and continuous wave Doppler of his LV inflow tract showed normal diastolic filling velocities. This was against mitral stenosis. There appeared to be primarily an early diastolic / passive filling pattern with virtually no atrial filling pattern. Early mitral deceleration time was normal. Using pulsed and tissue Doppler of his mitral annulus his current mean left atrial pressure appeared to be within normal limits. Pulsed and continuous wave Doppler of his pulmonary trunk showed a normal peak systolic velocity against right ventricle (RV) outflow tract obstruction. His pulmonary artery acceleration time was markedly abbreviated consistent with an elevated pulmonary vascular resistance. Guided continuous wave Doppler of his tricuspid valve allowed our estimation of his right ventricular systolic pressure (severely increased). His inferior vena cava was moderately dilated with virtually absent respiratory collapse consistent with an elevated central venous pressure of at least 20 mmHg. CONCLUSIONS: Unable to clearly visualize a pedunculated vegetation. However, degenerative changes of the mitral aortic valvular apparatus may be difficult to rule out a sessile vegetation. The observed mitral and aortic valvular findings, however were unchanged from those described 02/13/2014. Mild aortic valvular sclerosis without stenosis or insufficiency. Mild to moderate mitral annular calcification with moderate insufficiency. Mild concentric left ventricle hypertrophy with localized septal wall motion abnormality due to right ventricular pacing, yet preserved global resting systolic function. Prominently dilated left atrium with currently normal estimated mean left atrial pressure. Moderately dilated right heart chambers with Doppler evidence of severe pulmonary hypertension. Moderately dilated IVC with absent respiratory collapse consistent with right heart failure. Comparing the above test findings with 02/14/2014, left ventricular systolic function appeared to be preserved. Right heart chambers appear to be increased in size with significant worsening of pulmonary arterial pressures and increase in right heart chamber sizes. If a cardiac source of his fever is seriously suspect in addition to complete blood count, sedimentation rate and two sets of blood cultures, by at least 12 hours, we would suggest a transesophageal echocardiogram. [facility]
[2017-07-08] MEDS: VANCOMYCIN HCL 1,000 MG, VIAL MATE ADAPTER 1 EACH in D5W 250 ML IV SCH (19:51)
[2017-07-08 20:00] VITALS: BP 145/71
[2017-07-08] MEDS: TAMSULOSIN 0.4 MG CAP PO SCH (21:03)
[2017-07-08] MEDS: LATANOPROST 0.005% OPHTH SOLN 2.5 ML OU SCH (21:10)
[2017-07-08] MEDS: HEPARIN DRIP 25,000 UNITS in APPROPRIATE DILUENT 1 EA IV SCH (22:50)
[2017-07-08 23:59] VITALS: BP 141/72
[2017-07-09] MEDS: PIPERACILLIN/TAZOBACTAM SOD 2.25 GM in D5W MINI-BAG PLUS 50 ML IV SCH (00:36)
[2017-07-09 04:45] VITALS: BP 142/71
[2017-07-09] MEDS: MUPIROCIN 2% OINT 22 GM TUBE TOP SCH ×3 (04:52→21:00)
[2017-07-09 05:32] LABS: MEAN CORPUSCULAR HEMOGLOBIN 23.3 pg (27.0-33.0); MEAN CORPUSCULAR HGB CONC 31.6 g/dl (32.0-36.5); MEAN CORPUSCULAR VOLUME 73.7 fl (80.0-96.0); RED CELL DISTRIBUTION WIDTH 19.5 % (11.5-14.5); WHITE BLOOD COUNT 7.1 K/mm3 (4.0-10.0)
[2017-07-09 06:00] LABS: ALBUMIN 2.6 GM/DL (3.2-5.2); ALBUMIN/GLOBULIN RATIO 0.81 (1.00-1.93); BILIRUBIN,TOTAL 0.6 MG/DL (0.2-1.0); CALCIUM LEVEL 7.8 MG/DL (8.8-10.2); CREATININE FOR GFR 1.9 MG/DL (0.70-1.30); GLOMERULAR FILTRATION RATE 35.9 (>35); MAGNESIUM LEVEL 1.8 MG/DL (1.8-2.4); POTASSIUM SERUM 3.6 MEQ/L (3.5-5.1); TOTAL PROTEIN 5.8 GM/DL (6.4-8.2)
[2017-07-09 08:10] VITALS: BP 133/62
[2017-07-09] MEDS: HumaLOG INSULIN (NovoLOG) PER UNIT SC SCH ×4 (08:12→22:50)
[2017-07-09] MEDS: TIMOLOL MALEATE 0.25% OPHTH SOLN 5 ML OU SCH (09:19)
[2017-07-09] MEDS: LACTOBACILLUS ACIDOPHILUS CAP (BACID) PO SCH ×3 (09:19→22:11)
[2017-07-09] MEDS: FEBUXOSTAT 40 MG TABLET (ULORIC) PO SCH (09:19)
[2017-07-09] MEDS: DOXYCYCLINE HYCLATE 100 MG TAB PO SCH ×2 (09:19→22:11)
[2017-07-09] MEDS: FERROUS SULFATE 325MG TAB PO SCH ×2 (09:19→22:11)
[2017-07-09] MEDS: SENOKOT S TAB PO SCH ×2 (09:19→22:49)
--- NOTE | 2017-07-09 09:43 | IPN ---
DATE: 07/08/2017 SUBJECTIVE: The patient was seen and examined at the bedside this morning. The patient is hemodynamically stable. Renal function is improving. Creatinine is down to 2.1 today. He continues to be on IV fluids at this time. Hemoglobin was dropping. The patient is scheduled to have two units of packed red blood cells (PRBC) transfusion today. REVIEW OF SYSTEMS: The patient denies any fevers, chills, rigors, headaches, nausea, vomiting chest pain. Shortness of breath. He denies any pain in the abdomen or constipation. He reports mild pain the right foot cellulitis site. The rest of the review of systems is negative. OBJECTIVE: VITAL SIGNS: Temperature is 98.7 degrees Fahrenheit. Blood pressure 128/69, pulse 70, respiratory rate of 18, saturating 97% in room air. Intake and output: Urine output recorded as 750 mL yesterday, 1125 mL so far today since overnight. The patient on the bed scale is 91.3 kg. GENERAL: The patient is awake, alert, oriented times three, laying in bed in no apparent distress. He is slightly hard of hearing. HEAD AND NECK EXAM: Extraocular muscles intact. Pupils equally round and reactive to light. Mucous membranes are moist. Neck is supple. There is no jugular venous distention. CARDIOVASCULAR: S1, S2 regular rate. No murmur, rub or gallop. RESPIRATORY: Chest is clear to auscultation bilaterally and bilaterally good air entry. No rales or rhonchi. ABDOMEN: Soft, positive bowel sounds. Nontender. No ascites. No organomegaly. MUSCULOSKELETAL: The patient has a dressing on the right foot. Otherwise, no clubbing or cyanosis. BACKPACKERS MANAGER: No focal neurologic deficit. Power is 5/5 in bilateral upper extremities. PSYCH: Normal mood and affect. LAB REVIEW: CBC showed a WBC 8, hemoglobin 7.4, platelets are 106. BMP showed sodium 42, potassium 3.6, chloride 109, bicarbonate 22, BUN 59, creatinine is 2.1. Calcium 8.2, magnesium 1.9, iron level is 19, TIBC 294, transferrin saturation 6.5, ferritin 55, B12 285, folate is 9.8. Vancomycin trough was 11.4 today. Microbiology: Urine culture is negative so far. Blood cultures are negative. Blood Bank: The patient is pending two units of packed red blood cells transfusion today. CURRENT INPATIENT MEDICATIONS: The patient's medications were all reviewed by me. I have stopped his IV fluid hydration today because the patient is supposed to get two units of packed red blood cells transfusion. No other change in the medications today as compared with yesterday. ASSESSMENT: 87-year-old male with past medical history of chronic kidney disease, stage III, diabetes mellitus type 2, hypertension, admitted this time because of sepsis secondary to right foot cellulitis. Nephrology service following the patient for management of acute kidney injury, superimposed on chronic kidney disease. PLAN: 1. Acute kidney disease superimposed on chronic kidney disease secondary to sepsis, dehydration and volume depletion. Continue gentle IV fluid hydration until patient starts packed red blood cells transfusion. Once the packed red blood cells transfusion is started then IV fluids can be stopped. Renal function is slowly improving. 2. Right lower extremity cellulitis: The patient is currently on vancomycin and Zosyn. The Zosyn dose is adequately renally dosed. Vancomycin is being doses according to the trough levels. 3. 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 Continue current dose of Uloric. 4. Iron deficient anemia: We need to make sure patient's fecal occult blood is negative. The patient cannot get IV iron at this time because of active infection. He is going to get two units of packed red blood cells transfusion and that will be helpful with the iron deficiency as well. 5. Diabetes mellitus type 2: Metformin was already held by the primary team. Continue current insulin sliding scale.
[2017-07-09] MEDS: BICITRA 30ML SOLN UDC PO SCH ×2 (09:52→22:11)
--- NOTE | 2017-07-09 11:08 | IPN ---
DATE: 07/09/2017 87-year-old gentleman seen at bedside. No overnight issues reported. No headache, lightheaded, dizziness, no chest pain, nausea or vomiting. OBJECTIVE: Temperature 99, pulse 71, respiratory rate 18, blood pressure 142/71, SpO2 is 98% on room air. GENERAL: The patient appears to be in no acute distress, alert, pleasant. HEENT: Head is atraumatic, normocephalic. Eyes pupils equal, round and reactive to light and accommodation. Throat clear. LUNGS: Clear. HEART: Regular rate and rhythm. ABDOMEN: Soft. EXTREMITIES: No edema. No calf tenderness. The 2nd digit on the right foot does appear to be granulating. LABORATORY DATA: White count is 7.1, hemoglobin 7.6, platelets 104,000. Sodium 143, potassium 3.6, chloride 112, bicarb 19, anion gap is 12, BUN is 1.92. His iron studies again showed a low iron but normal TIBC. Transferrin is pending at this time. Ferritin was 55, B12 and folate were normal. Albumin 2.6, AST 66, ALT 84, alkaline phosphatase 183, total bilirubin 0.6. Absolute reticulocyte count was 100. Percent reticulocyte count is 3.2. His peripheral smear demonstrated reactive leukocytosis and iron deficiency anemia with elevated reticulocytes consistent with increased blood loss. White cell, red cells and platelet morphology was otherwise normal. ASSESSMENT/PLAN: 1. Right second toe cellulitis with wound. Appreciate Dr. Geller's input. His culture was positive for Methicillin-resistant Staphylococcus aureus (MRSA). Will go ahead and switching him to oral doxycycline. 2. Anemia, multifactorial, questionable acute blood loss anemia versus iron deficiency. Will go ahead and give him another unit of packed red blood cells and see how he does. He is not complaining of any blood per rectum. Stool for occult blood is pending. Will repeat his hemoglobin and hematocrit later to see how he is responding to the transfusion. 3. Atrial fibrillation. Xarelto on hold. He is rate controlled otherwise. 4. 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 5. Hypertension stable. 6. Diabetes. Continue fingersticks before meals and at bedtime with sliding scale coverage. Consistent carbohydrate diet. 7. Chronic kidney disease, stage IV. His baseline creatinine does appear to be between 1.6 and 1.9. He does appear to be doing well here. 8. Peripheral vascular disease, stable. 9. History of unsteady gait. 10. Deep vein thrombosis (DVT) prophylaxis. Thromboembolic deterrent stockings (TEDS) and sequential. DISPOSITION: Will continue with physical therapy, occupational therapy. Transfuse and he will likely need outpatient followup with likely a colonoscopy in the future.
[2017-07-09 12:00] VITALS: BP 155/72
[2017-07-09 16:00] VITALS: BP 168/75
--- NOTE | 2017-07-09 20:59 | IPN ---
DATE: 07/09/2017 SUBJECTIVE: The patient was seen and examined at the bedside today morning. Last 24-hour events were noted. The patient was given a unit of packed red blood cells (PRBCs ) yesterday and one unit was given today morning. His renal function is improving. He is hemodynamically stable. REVIEW OF SYSTEMS: The patient denies any fevers, chills, rigors, headaches, nausea, vomiting, chest pain, shortness of breath, pain abdomen, constipation, or diarrhea. Rest of review of systems is negative. OBJECTIVE: VITAL SIGNS: Temperature is 98.7 degrees Fahrenheit, blood pressure is 155/72, pulse is 61, respiratory rate of 18, saturating 100% on room air. INTAKE AND OUTPUT: Urine output recorded as 1.4 liters yesterday. Urine output so far today since overnight is 575 mL. Weight in the bed scale is 91.8 kg. PHYSICAL EXAMINATION: GENERAL: The patient is awake, alert, and oriented times three, sitting in the bed. No apparent distress. HEAD/NECK: Extraocular muscles intact. Pupils equal, round, and reactive to light. Mucous membranes are moist. Neck is supple. There is no jugular venous distention (JVD). CARDIOVASCULAR: S1, S2. Regular rate. No murmur, rub, or gallop. RESPIRATORY: Chest is clear to auscultation bilaterally. Bilateral equal air entry. No rales or rhonchi. ABDOMEN: Soft. Positive bowel sounds. Nontender. No ascites. No organomegaly. MUSCULOSKELETAL: The patient has a dressing on the right foot. Otherwise, no clubbing or cyanosis. CENTRAL NERVOUS SYSTEM (TILE CLASSIFIER): No focal neurological deficit. Power is 5/5 in bilateral upper extremities. PSYCHIATRIC: Normal mood and affect. LABORATORY DATA: CBC showed a WBC of 7.1, hemoglobin 7.6, platelets of 104. BMP showed sodium 143 , potassium 3.6, chloride 112, bicarbonate 19, BUN 48, creatinine 1.9, it was 2.1 yesterday. Calcium 7.8, magnesium 1.8, AST 66, ALT 84, alkaline phosphatase is 183. Albumin is 2.6. MICROBIOLOGY: Wound culture on the right second toe is growing Staphylococcus aureus, which is resistant to penicillin G; otherwise it is pansensitive. CURRENT INPATIENT MEDICATIONS: The patient's intravenous (IV) vancomycin and Zosyn have been stopped. He has been started on doxycycline 100 mg by mouth twice a day. No other change in the medications today as compared with yesterday. ASSESSMENT: An 87-year-old male with past medical history of chronic kidney disease stage III, diabetes mellitus type 2, hypertension, admitted this time because of sepsis secondary to right foot cellulitis. Nephrology service following the patient for management of acute kidney injury superimposed on chronic kidney disease. PLAN: 1. Acute kidney injury superimposed on chronic kidney disease: It was secondary to dehydration, sepsis, volume depletion. The patient was initially hydrated with IV fluids; however, he got two units of packed red blood cells transfusion. IV fluids were stopped. Renal function is improving. His creatinine is 1.9 today. 2. Right lower extremity cellulitis: Cultures grew heavy growth of Staphylococcus aureus. IV Zosyn and vancomycin were stopped. Patient is currently on doxycycline. 3. Iron-deficiency anemia: No IV iron at this time because of active infection. The patient got two units of PRBCs transfusion, and he should have received approximately 500 mg of iron with those transfusions. Rest of the multiple gastrointestinal (GI) bleed workup is up to primary team. 4. Diabetes mellitus type 2: Metformin is on hold. The patient should not get metformin in chronic kidney disease (CKD) stage III. Continue insulin sliding scale. 5. Metabolic acidosis: The patient was started on Bicitra 15 mL by mouth twice a day. MTDD
[2017-07-09] MEDS: TAMSULOSIN 0.4 MG CAP PO SCH (22:11)
[2017-07-09] MEDS: LATANOPROST 0.005% OPHTH SOLN 2.5 ML OU SCH (22:14)
[2017-07-09] MEDS: HEPARIN DRIP 25,000 UNITS in APPROPRIATE DILUENT 1 EA IV SCH (23:54)
[2017-07-09 23:59] VITALS: BP 138/64
[2017-07-10 04:00] VITALS: BP 165/82
[2017-07-10 05:22] LABS: MEAN CORPUSCULAR HEMOGLOBIN 23.9 pg (27.0-33.0); MEAN CORPUSCULAR HGB CONC 31.9 g/dl (32.0-36.5); RED CELL DISTRIBUTION WIDTH 20.4 % (11.5-14.5)
[2017-07-10 05:36] LABS: ALBUMIN 2.6 GM/DL (3.2-5.2); ALBUMIN/GLOBULIN RATIO 0.84 (1.00-1.93); BILIRUBIN,TOTAL 0.8 MG/DL (0.2-1.0); CALCIUM LEVEL 8.3 MG/DL (8.8-10.2); CREATININE FOR GFR 1.49 MG/DL (0.70-1.30); GLOMERULAR FILTRATION RATE 47.5 (>35); MAGNESIUM LEVEL 1.8 MG/DL (1.8-2.4); POTASSIUM SERUM 3.5 MEQ/L (3.5-5.1); TOTAL PROTEIN 5.7 GM/DL (6.4-8.2)
[2017-07-10 08:00] VITALS: BP 148/70
[2017-07-10] MEDS: DOXYCYCLINE HYCLATE 100 MG TAB PO SCH ×2 (08:23→20:59)
[2017-07-10] MEDS: HumaLOG INSULIN (NovoLOG) PER UNIT SC SCH ×4 (08:23→20:50)
[2017-07-10] MEDS: BICITRA 30ML SOLN UDC PO SCH ×2 (08:23→20:59)
[2017-07-10] MEDS: LACTOBACILLUS ACIDOPHILUS CAP (BACID) PO SCH ×3 (08:23→20:59)
[2017-07-10] MEDS: FEBUXOSTAT 40 MG TABLET (ULORIC) PO SCH (08:23)
[2017-07-10] MEDS: FERROUS SULFATE 325MG TAB PO SCH ×2 (08:24→20:59)
[2017-07-10] MEDS: SENOKOT S TAB PO SCH ×2 (08:24→20:59)
[2017-07-10] MEDS: TIMOLOL MALEATE 0.25% OPHTH SOLN 5 ML OU SCH (08:24)
[2017-07-10 12:00] VITALS: BP 150/68
[2017-07-10] MEDS: HEPARIN DRIP 25,000 UNITS in APPROPRIATE DILUENT 1 EA IV SCH (12:26)
[2017-07-10] MEDS: MUPIROCIN 2% OINT 22 GM TUBE TOP SCH ×2 (13:42→22:06)
--- NOTE | 2017-07-10 14:35 | IPN ---
DATE: 07/10/2017 87-year-old male seen at bedside. No overnight issues reported. No fevers, chills, nausea, vomiting. No chest pain. OBJECTIVE: Temperature 99.1, pulse 69, respiratory rate 18, blood pressure 150/68, SpO2 is 96% on room air. General: The patient appears to be in no acute distress. Is alert and oriented. HEENT: Unremarkable. Lungs: Clear. Heart: Regular rhythm. Abdomen: Soft. Extremities: No edema. No calf tenderness. LABORATORY DATA: White count is 9.0, hemoglobin 8.5, platelets 127,000. Sodium 142, potassium 3.5, chloride 110, bicarb 22, anion gap 10, BUN is 36, creatinine is 1.49, glucose is 154, magnesium 1.80, AST 68, ALT 106, alkaline phosphatase 217, albumin is 2.6, INR 84.7. ASSESSMENT/PLAN: 1. Right 2nd toe cellulitis with sepsis and. Appreciate Dr. Geller's input. Staphylococcus which is penicillin resistant. The patient currently on doxycycline appears to be doing well. No fevers and normal white count. 2. Anemia, multifactorial, questionable acute blood loss versus iron deficiency. His hemoglobin and hematocrit is stable. He will eventually need GI followup with possible colonoscopy. 3. Atrial fibrillation: Xarelto on hold. He otherwise rate controlled. We may want to make sure his kidney function is in better shape before starting back on Xarelto. In the meantime he remains on the heparin drip. 4. History of heart block with pacemaker. No issues on telemetry. 5. Hypertension stable. 6. Diabetes: Continue fingersticks every morning and nightly, sliding-scale coverage. Consistent carb diet. 7. Chronic kidney disease (CKD) stage IV: Baseline creatinine is 1.6 and 1.9. If his renal function remains stable, tomorrow we will consider resuming the Xarelto and discontinue the heparin drip. 8. Peripheral vascular disease, stable. 9. History of unsteady gait. 10. Deep venous thrombosis (DVT) prophylaxis. Heparin drip and will likely resume Xarelto tomorrow. DISPOSITION: The patient will be downgraded to medical floor. He will need outpatient followup with colonoscopy in the future. Big issues for now includes physical therapy and possibly subacute rehabilitation. [facility]
[2017-07-10 20:00] VITALS: BP 157/72
--- NOTE | 2017-07-10 20:42 | IPN ---
DATE: 07/10/2017 SUBJECTIVE: The patient was seen and examined at the bedside today morning. The patient reports that he is feeling much better. He is hemodynamically stable. The patient is afebrile. Renal function continues to improve. Creatinine is down to 1.4 today. REVIEW OF SYSTEMS: The patient denies any fevers, chills, rigors, headaches, nausea, vomiting, chest pain, shortness of breath, pain abdomen, constipation, or diarrhea. Rest of review of systems is negative. OBJECTIVE: VITAL SIGNS: Temperature is 99.1 degrees Fahrenheit, blood pressure 150/68, pulse is 69, respiratory rate of 18, saturating 96% on room air. INTAKE AND OUTPUT: Urine output recorded as 175 mL yesterday, 600 mL so far today since overnight. PHYSICAL EXAMINATION: GENERAL: The patient is awake, alert, and oriented times three, sitting in bed in no apparent distress. HEAD/NECK: The patient is hard of hearing. Pupils equal, round, and reactive to light. Mucous membranes are moist. Neck is supple. There is no jugular venous distention (JVD). CARDIOVASCULAR: S1, S2. Regular rate. No murmur, rub, or gallop. RESPIRATORY: Chest is clear to auscultation bilaterally. Bilateral equal air entry. No rales or rhonchi. ABDOMEN: Soft. Positive bowel sounds. Nontender. No ascites. No organomegaly. MUSCULOSKELETAL: The patient has a dressing on the right foot. Otherwise, no clubbing or cyanosis. CENTRAL NERVOUS SYSTEM (APARTMENT ASSISTANT MANAGER): No focal neurological deficit. Power is 5/5 in bilateral upper extremities. PSYCHIATRIC: Normal mood and affect. LABORATORY DATA: CBC showed a WBC of nine, hemoglobin 8.5, platelets of 127. BMP showed sodium 142, potassium 3.5, chloride 110, bicarbonate 42, BUN 36, creatinine 1.49, glucose 154, calcium 8.3, magnesium 1.8. CURRENT INPATIENT MEDICATIONS: The patient's medications are all reviewed by me. There is no change in the medications today, except that he has been started on rosuvastatin 10 mg by mouth on Tuesday. ASSESSMENT: An 87-year-old male with past medical history of chronic kidney disease stage III, diabetes mellitus type 2, hypertension, admitted this time because of sepsis secondary to right foot cellulitis. Nephrology service following the patient for management of acute kidney injury superimposed on chronic kidney disease. PLAN: 1. Acute kidney injury superimposed on chronic kidney disease: Acute kidney injury (BRIDGETT) is secondary to dehydration, volume depletion and sepsis. Renal function continues to improve. Creatinine is down to 1.4 today. 2. Right lower extremity cellulitis: The patient had heavy growth of Staphylococcus aureus. Intravenous (IV) Zosyn and vancomycin have been stopped. The patient is currently on oral doxycycline. 3. Iron-deficiency anemia: No IV iron because of acute infection. The patient got two units of packed red blood cells (PRBCs) transfusion. 4. Metabolic acidosis: Continue current dose of Bicitra 15 mL by mouth twice a day. 5. Elevated liver injury tests: The patient has high ALT, ALT, alkaline phosphatase. I stopped the Tylenol yesterday. Avoid the hepatotoxic medications. Rest of the management is as per primary team. The patient's renal function continues to improve at this time. Nephrology service was sign off at this moment. Please call nephrology as needed for any help in the management of this patient during this hospitalization. [facility]
[2017-07-10] MEDS: TAMSULOSIN 0.4 MG CAP PO SCH (20:59)
[2017-07-10] MEDS: LATANOPROST 0.005% OPHTH SOLN 2.5 ML OU SCH (21:00)
[2017-07-10 22:00] VITALS: BP 161/78
[2017-07-11 02:00] VITALS: BP 134/69
[2017-07-11 06:00] VITALS: BP 132/62
[2017-07-11 07:23] LABS: MEAN CORPUSCULAR HEMOGLOBIN 24.1 pg (27.0-33.0); MEAN CORPUSCULAR HGB CONC 32.2 g/dl (32.0-36.5); MEAN CORPUSCULAR VOLUME 74.8 fl (80.0-96.0); RED CELL DISTRIBUTION WIDTH 20.6 % (11.5-14.5); WHITE BLOOD COUNT 9.8 K/mm3 (4.0-10.0)
--- NOTE | 2017-07-11 07:48 | IPN ---
DATE: 07/11/2017 87-year-old gentleman seen at bedside. No overnight issues reported. He denies chest pain, lightheadedness, dizziness, dyspnea on exertion. No nausea, vomiting, no abdominal pain. OBJECTIVE: Temperature is 99.1, pulse 71, respiratory rate 18, blood pressure 132/62, SpO2 is 96% on room air. General: The patient appears to be in no acute distress. He is pleasant. HEENT: Unremarkable. Lungs: Clear. Heart: Regular rhythm. Abdomen: Obese, soft, nontender. Positive bowel sounds. No masses or rebound. Extremities: The redness and cellulitis on the right anterior mercado is almost completely dissipated. Wound continues to show good granulation. Distally pulses are intact. No calf tenderness. Laboratory data is pending at this time. ASSESSMENT/PLAN: 1. Right second toe cellulitis with sepsis and wound. Appreciate Dr. Geller's input. He does have Staphylococcus resistance penicillin. Will continue on doxycycline. He is running no fevers and he has had a normal white count 2. Anemia, multifactorial acute blood loss versus iron deficiency. Hemoglobin and hematocrit has been normal. We will see how it is doing today. He will eventually need outpatient follow-up, possible GI and colonoscopy. 3. Atrial fibrillation: He is rate controlled. If his hemoglobin and hematocrit is stable today as well as back to baseline creatinine, we will resume Xarelto. 4. History of heart block on pacemaker. No issues were found on telemetry. 5. Hypertension stable. 6. Diabetes: Continue fingersticks every morning and at bedtime sliding scale coverage. Consistent carbohydrate diet. 7. Chronic kidney disease (CKD) stage IV: Baseline creatinine is 1.6-1.9. Again if he is at baseline, we will can discontinue the heparin and resume the Xarelto. 8. Peripheral vascular disease, stable. 9. History of unsteady gait: Will wait physical therapy today. 10 Deep venous thrombosis (DVT) prophylaxis: Heparin drip which will plan on discontinuing later today. Resume Xarelto as long as his kidney function is baseline. DISPOSITION: Currently, we are waiting for physical therapy. We will see how he does to see if he can return home with services versus subacute rehabilitation. [facility]
[2017-07-11 08:31] LABS: POTASSIUM SERUM 3.8 MEQ/L (3.5-5.1)
[2017-07-11 08:58] LABS: ALBUMIN 2.8 GM/DL (3.2-5.2); ALBUMIN/GLOBULIN RATIO 1.08 (1.00-1.93); BILIRUBIN,TOTAL 0.7 MG/DL (0.2-1.0); CREATININE FOR GFR 1.43 MG/DL (0.70-1.30); GLOMERULAR FILTRATION RATE 49.8 (>35); MAGNESIUM LEVEL 1.7 MG/DL (1.8-2.4); TOTAL PROTEIN 5.4 GM/DL (6.4-8.2)
[2017-07-11] MEDS ORDERED: ROSUVASTATIN 10 MG TAB (CRESTOR) PO SCH (09:00)
[2017-07-11] MEDS: FERROUS SULFATE 325MG TAB PO SCH ×2 (09:10→20:37)
[2017-07-11] MEDS: DOXYCYCLINE HYCLATE 100 MG TAB PO SCH ×2 (09:10→20:37)
[2017-07-11] MEDS: SENOKOT S TAB PO SCH ×2 (09:10→20:37)
[2017-07-11] MEDS: LACTOBACILLUS ACIDOPHILUS CAP (BACID) PO SCH ×3 (09:10→20:37)
[2017-07-11] MEDS: BICITRA 30ML SOLN UDC PO SCH ×2 (09:10→20:37)
[2017-07-11] MEDS: FEBUXOSTAT 40 MG TABLET (ULORIC) PO SCH (09:10)
[2017-07-11] MEDS: HumaLOG INSULIN (NovoLOG) PER UNIT SC SCH ×4 (09:10→20:38)
[2017-07-11] MEDS: MUPIROCIN 2% OINT 22 GM TUBE TOP SCH ×2 (09:11→20:39)
[2017-07-11] MEDS: TIMOLOL MALEATE 0.25% OPHTH SOLN 5 ML OU SCH (09:11)
[2017-07-11] MEDS: MAGNESIUM OXIDE 400 MG TAB (MAG-OX) PO SCH (10:35)
[2017-07-11 14:00] VITALS: BP 125/80
[2017-07-11] MEDS: RIVAROXABAN 15 MG TAB (XARELTO) PO SCH (17:33)
[2017-07-11 20:17] VITALS: BP 145/61
[2017-07-11] MEDS: TAMSULOSIN 0.4 MG CAP PO SCH (20:37)
[2017-07-11] MEDS: LATANOPROST 0.005% OPHTH SOLN 2.5 ML OU SCH (20:38)
[2017-07-12 06:00] VITALS: BP 151/70
[2017-07-12 07:30] LABS: MEAN CORPUSCULAR HEMOGLOBIN 23.4 pg (27.0-33.0); MEAN CORPUSCULAR HGB CONC 30.3 g/dl (32.0-36.5); MEAN CORPUSCULAR VOLUME 77.2 fl (80.0-96.0); RED CELL DISTRIBUTION WIDTH 20.5 % (11.5-14.5); WHITE BLOOD COUNT 10.6 K/mm3 (4.0-10.0)
[2017-07-12 07:47] LABS: ALBUMIN 2.8 GM/DL (3.2-5.2); ALBUMIN/GLOBULIN RATIO 1.12 (1.00-1.93); BILIRUBIN,TOTAL 0.6 MG/DL (0.2-1.0); CALCIUM LEVEL 8.2 MG/DL (8.8-10.2); CREATININE FOR GFR 1.39 MG/DL (0.70-1.30); GLOMERULAR FILTRATION RATE 51.5 (>35); POTASSIUM SERUM 4.2 MEQ/L (3.5-5.1); TOTAL PROTEIN 5.3 GM/DL (6.4-8.2)
[2017-07-12] MEDS: MAGNESIUM OXIDE 400 MG TAB (MAG-OX) PO SCH (08:01)
[2017-07-12] MEDS: FEBUXOSTAT 40 MG TABLET (ULORIC) PO SCH (08:01)
[2017-07-12] MEDS: FERROUS SULFATE 325MG TAB PO SCH ×2 (08:01→20:15)
[2017-07-12] MEDS: HumaLOG INSULIN (NovoLOG) PER UNIT SC SCH ×4 (08:01→20:41)
[2017-07-12] MEDS: SENOKOT S TAB PO SCH ×2 (08:01→20:16)
[2017-07-12] MEDS: LACTOBACILLUS ACIDOPHILUS CAP (BACID) PO SCH ×3 (08:01→20:15)
[2017-07-12] MEDS: DOXYCYCLINE HYCLATE 100 MG TAB PO SCH ×2 (08:01→20:15)
[2017-07-12] MEDS: TIMOLOL MALEATE 0.25% OPHTH SOLN 5 ML OU SCH (08:02)
[2017-07-12] MEDS: MUPIROCIN 2% OINT 22 GM TUBE TOP SCH ×2 (08:02→20:19)
--- NOTE | 2017-07-12 13:42 | IPN ---
DATE: 07/12/2017 The patient is without complaint. No chest pain. No shortness of breath. Tolerating a diet. Temperature is 99.6. Pulse 69. Respiratory rate 18. Blood pressure 154/70. 96% on room air. Ins and outs notable for negative fluid balance of -755. Body mass index 27.7. It looks as though his weight is relatively stable from 07/10/2017. Awake, answering questions appropriately. Pleasant and easily conversant. Neck is supple. Breathing is symmetrical, rested. I:E ratio is 1:3. No wheezes, rales or rhonchi. No accessory muscle use. Heart is distant sounding. Normal S1, S2. Abdomen soft, doughy, nontender. His second toe has a dry lesion with some surrounding erythema. There is no significant erythema of the right mercado. White cell count 10.6, hemoglobin 8.7 and platelets 141. BUN 32, creatinine 1.39. AST 37. ALT 86. Alkaline phosphatase 222. ASSESSMENT: This is an 87-year-old with right lower extremity cellulitis with resolved sepsis. PLAN: 1. Infectious disease. The patient is continued on doxycycline. 2. The patient has anemia which is microcytic and likely iron deficiency combined with anemia of chronic disease. 3. The patient has atrial fibrillation. Is it rate controlled on Xarelto. 4. The patient has hypertension. 5. The patient has diabetes. 6. The patient has chronic kidney disease Stage IV. It would appear to be at better than his baseline renal function. 7. Deep vein thrombosis (DVT) prophylaxis, Xarelto. The patient is being followed by physical therapy and has not yet been found to be safe for discharge.
[2017-07-12 14:00] VITALS: BP 147/68
[2017-07-12] MEDS: RIVAROXABAN 15 MG TAB (XARELTO) PO SCH (17:12)
[2017-07-12] MEDS: TAMSULOSIN 0.4 MG CAP PO SCH (20:15)
[2017-07-12] MEDS: LATANOPROST 0.005% OPHTH SOLN 2.5 ML OU SCH (20:18)
[2017-07-12 22:00] VITALS: BP 153/64
[2017-07-13 06:00] VITALS: BP 136/69
[2017-07-13 07:18] LABS: MEAN CORPUSCULAR HEMOGLOBIN 24.5 pg (27.0-33.0); MEAN CORPUSCULAR HGB CONC 32.4 g/dl (32.0-36.5); MEAN CORPUSCULAR VOLUME 75.7 fl (80.0-96.0); RED CELL DISTRIBUTION WIDTH 20.6 % (11.5-14.5); WHITE BLOOD COUNT 11.3 K/mm3 (4.0-10.0)
[2017-07-13 07:40] LABS: ALBUMIN 2.8 GM/DL (3.2-5.2); ALBUMIN/GLOBULIN RATIO 0.93 (1.00-1.93); BILIRUBIN,TOTAL 0.5 MG/DL (0.2-1.0); CALCIUM LEVEL 8.5 MG/DL (8.8-10.2); CREATININE FOR GFR 1.29 MG/DL (0.70-1.30); GLOMERULAR FILTRATION RATE 56.1 (>35); MAGNESIUM LEVEL 1.8 MG/DL (1.8-2.4); POTASSIUM SERUM 4.3 MEQ/L (3.5-5.1); TOTAL PROTEIN 5.8 GM/DL (6.4-8.2)
[2017-07-13] MEDS: TIMOLOL MALEATE 0.25% OPHTH SOLN 5 ML OU SCH (08:29)
[2017-07-13] MEDS: DOXYCYCLINE HYCLATE 100 MG TAB PO SCH ×2 (08:29→21:41)
[2017-07-13] MEDS: LACTOBACILLUS ACIDOPHILUS CAP (BACID) PO SCH ×3 (08:29→21:41)
[2017-07-13] MEDS: FERROUS SULFATE 325MG TAB PO SCH ×2 (08:29→21:40)
[2017-07-13] MEDS: SENOKOT S TAB PO SCH ×2 (08:29→21:41)
[2017-07-13] MEDS: MAGNESIUM OXIDE 400 MG TAB (MAG-OX) PO SCH (08:29)
[2017-07-13] MEDS: HumaLOG INSULIN (NovoLOG) PER UNIT SC SCH ×4 (08:29→21:00)
[2017-07-13] MEDS: FEBUXOSTAT 40 MG TABLET (ULORIC) PO SCH (08:29)
[2017-07-13] MEDS: MUPIROCIN 2% OINT 22 GM TUBE TOP SCH ×2 (08:30→21:41)
[2017-07-13 14:00] VITALS: BP 152/77
--- NOTE | 2017-07-13 14:12 | IPN ---
DATE: 07/13/2017 The patient has done well with physical therapy (PT) today. Family is requesting occupational therapy and they have some concerns about his left foot. Temperature is 98.4, pulse 70, respiratory rate 16, blood pressure 136/69, 95% on room air. Input and output notable for a positive fluid balance of 15, three bowel movements noted thus far today. Awake, appropriately interactive, pleasantly conversant. is at bedside. Mucous membranes moist. Neck is supple. Breathing is symmetrical. Heart is distant sounding. Normal S1, S2. Abdomen soft, doughy, nontender. White cell count 11.3, hemoglobin 9, platelets 155. BUN 31, creatinine 1.29, alkaline phosphatase is 216, albumin is 2.8. ASSESSMENT: This is an 87-year-old with right lower extremity cellulitis with resolved sepsis. PLAN: 1. Infectious disease. The patient is on doxycycline for his right lower extremity resolving cellulitis. 2. The patient has anemia which is microcytic and likely iron deficient in the setting of anemia of chronic disease. 3. The patient has atrial fibrillation. Is it rate controlled on Xarelto. 4. The patient has hypertension. 5. The patient has diabetes. 6. The patient has chronic kidney disease Stage IV. 7. Deep vein thrombosis (DVT) prophylaxis is ordered. The patient is followed by physical therapy and I have provided a prescription for a rolling walker. Per patient and family request, I have ordered occupational therapy. Should he continue along this patient, we will plan for discharge on the .
[2017-07-13] MEDS: RIVAROXABAN 15 MG TAB (XARELTO) PO SCH (17:45)
[2017-07-13 20:00] VITALS: BP 122/64
[2017-07-13] MEDS: TAMSULOSIN 0.4 MG CAP PO SCH (21:41)
[2017-07-13] MEDS: LATANOPROST 0.005% OPHTH SOLN 2.5 ML OU SCH (21:41)
[2017-07-14 04:00] VITALS: BP 146/79
[2017-07-14] MEDS: HumaLOG INSULIN (NovoLOG) PER UNIT SC SCH ×4 (08:46→21:00)
[2017-07-14] MEDS: MAGNESIUM OXIDE 400 MG TAB (MAG-OX) PO SCH (08:46)
[2017-07-14] MEDS: DOXYCYCLINE HYCLATE 100 MG TAB PO SCH ×2 (08:48→21:35)
[2017-07-14] MEDS: SENOKOT S TAB PO SCH ×3 (08:48→21:36)
[2017-07-14] MEDS: LACTOBACILLUS ACIDOPHILUS CAP (BACID) PO SCH ×3 (08:48→21:36)
[2017-07-14] MEDS: FERROUS SULFATE 325MG TAB PO SCH ×2 (08:48→21:36)
[2017-07-14] MEDS: FEBUXOSTAT 40 MG TABLET (ULORIC) PO SCH (08:48)
[2017-07-14] MEDS: TIMOLOL MALEATE 0.25% OPHTH SOLN 5 ML OU SCH (08:49)
[2017-07-14] MEDS: MUPIROCIN 2% OINT 22 GM TUBE TOP SCH ×2 (09:00→21:37)
--- NOTE | 2017-07-14 11:54 | IPN ---
DATE: 07/14/2017 The patient is feeling well without complaints. No chest pain, shortness of breath. has requested a nutrition consultation, which has been ordered. Occupational therapy (OT) has been ordered. He is appropriate for being sent home with services. The case has been discussed with Dr. Geller, who recommends outpatient followup for his left foot. PHYSICAL EXAMINATION: Temperature is 99.3, pulse 71, respiratory rate 18, blood pressure 147/79, 98% on room air. Input and output notable for a negative fluid balance of -585. Body Mass Index (BMI) 27.8. He is awake. He is a good historian, answering questions appropriately. Mucous membranes moist. Neck is supple. Breathing is symmetrical. Heart is irregular but not tachycardic. Abdomen soft, doughy, nontender. C-reactive protein is 0.77. ASSESSMENT: This is an 87-year-old with right lower extremity cellulitis with resolved sepsis. PLAN: 1. Infectious disease. The patient is on doxycycline for his right lower extremity. His white cell count is increasing but C-reactive protein is improving. Clinically, he appears to be improving. 2. The patient has anemia, which is microcytic and likely a combination of iron deficient in the setting of anemia of chronic disease. 3. The patient has atrial fibrillation. Is on Xarelto. He is rate controlled. 4. The patient has hypertension. 5. The patient has diabetes. 6. The patient has diabetic foot ulcers and is being followed by Dr. Geller. 7. THe patient has chronic kidney disease stage IV. 8. The patient has appropriate deep vein thrombosis (DVT) prophylaxis. 9. The patient has passed physical therapy (PT) and occupational therapy (OT). Family is not ready to take him home until Tuesday.
[2017-07-14 14:00] VITALS: BP 147/70
[2017-07-14] MEDS: RIVAROXABAN 15 MG TAB (XARELTO) PO SCH (17:22)
[2017-07-14 20:00] VITALS: BP 145/63
[2017-07-14] MEDS: TAMSULOSIN 0.4 MG CAP PO SCH (21:35)
[2017-07-14] MEDS: LATANOPROST 0.005% OPHTH SOLN 2.5 ML OU SCH (21:36)
[2017-07-15 06:00] VITALS: BP 150/72
[2017-07-15 07:32] LABS: CREATININE FOR GFR 1.45 MG/DL (0.70-1.30); POTASSIUM SERUM 4.4 MEQ/L (3.5-5.1)
[2017-07-15 07:47] LABS: MEAN CORPUSCULAR HGB CONC 30.5 g/dl (32.0-36.5); MEAN CORPUSCULAR VOLUME 78.5 fl (80.0-96.0); RED CELL DISTRIBUTION WIDTH 21.3 % (11.5-14.5); WHITE BLOOD COUNT 10.1 K/mm3 (4.0-10.0)
[2017-07-15] MEDS: HumaLOG INSULIN (NovoLOG) PER UNIT SC SCH ×4 (08:23→20:39)
[2017-07-15] MEDS: SENOKOT S TAB PO SCH ×2 (08:23→20:39)
[2017-07-15] MEDS: FERROUS SULFATE 325MG TAB PO SCH ×2 (08:23→20:39)
[2017-07-15] MEDS: DOXYCYCLINE HYCLATE 100 MG TAB PO SCH (08:23)
[2017-07-15] MEDS: MAGNESIUM OXIDE 400 MG TAB (MAG-OX) PO SCH (08:23)
[2017-07-15] MEDS: FEBUXOSTAT 40 MG TABLET (ULORIC) PO SCH (08:23)
[2017-07-15] MEDS: LACTOBACILLUS ACIDOPHILUS CAP (BACID) PO SCH ×3 (08:23→20:39)
[2017-07-15] MEDS: MUPIROCIN 2% OINT 22 GM TUBE TOP SCH ×2 (08:24→20:40)
[2017-07-15] MEDS: TIMOLOL MALEATE 0.25% OPHTH SOLN 5 ML OU SCH (08:24)
[2017-07-15 14:00] VITALS: BP 139/64
--- NOTE | 2017-07-15 16:04 | IPN ---
DATE: 07/15/2017 SUBJECTIVE: The patient has no complaints. He tells me he is feeling great and is eager to go home as soon as his family is able to take him. OBJECTIVE: VITAL SIGNS: Temperature 98.0, pulse 70, respiratory rate 18, blood pressure 139/64, O2 saturation 98% on room air. GENERAL: He is pleasant. Sitting in recliner reading a novel. He is in no acute distress. He is very hard of hearing. HEENT: Cranial nerves II through XII are grossly intact. He has moist mucous membranes. No elevation of central venous pressure (CVP). CARDIOVASCULAR: S1, S2. Irregularly irregular. No discharges appreciated. RESPIRATORY: Lungs clear. ABDOMEN: Nontender, benign. EXTREMITIES: There is no clubbing, cyanosis or edema. LABORATORY STUDIES: WBC 10.1, hemoglobin 8.6, hematocrit 28.2, platelet count 180. Chemistry panel: Sodium 143, potassium 4.4, chloride 109, bicarbonate 24, BUN 32, creatinine 1.4. No new imaging or cultures. ASSESSMENT AND PLAN: This is an 87-year-old man with right lower extremity cellulitis with resolved sepsis. PROBLEMS: 1. Right lower extremity cellulitis. Completed course of antibiotics. Today was his last dose. The cellulitis has resolved. The patient was seen by Dr. Geller and underwent debridement and the patient will require further followup with Dr. Geller in the outpatient setting. 2. Leukocytosis. Has resolved. He is afebrile. 3. Anemia with multifactorial iron deficiency anemia of chronic disease. He is on ferrous sulfate. 4. Atrial fibrillation. The patient is on Xarelto. He is rate controlled without any agents. 5. Glaucoma. The patient is on timolol, Xalatan. 6. Diabetes. The patient on sliding scale insulin. 7. Hypertension. 8. Benign prostatic hypertrophy (BPH). The patient is on Flomax. 9. Dyslipidemia. The patient is on Crestor. 10. Chronic kidney disease, stable. 11. Deep venous thrombosis (DVT) prophylaxis. Pending PT/OT. I suspect the patient will be able to be discharged as early as tomorrow.
[2017-07-15] MEDS: RIVAROXABAN 15 MG TAB (XARELTO) PO SCH (17:26)
[2017-07-15 20:00] VITALS: BP 142/42
[2017-07-15] MEDS: LATANOPROST 0.005% OPHTH SOLN 2.5 ML OU SCH (20:38)
[2017-07-15] MEDS: TAMSULOSIN 0.4 MG CAP PO SCH (20:39)
[2017-07-16 06:00] VITALS: BP 121/85
[2017-07-16 06:55] LABS: MEAN CORPUSCULAR HEMOGLOBIN 25.5 pg (27.0-33.0); MEAN CORPUSCULAR HGB CONC 32.4 g/dl (32.0-36.5); MEAN CORPUSCULAR VOLUME 78.8 fl (80.0-96.0); RED CELL DISTRIBUTION WIDTH 21.4 % (11.5-14.5); WHITE BLOOD COUNT 8.7 K/mm3 (4.0-10.0)
[2017-07-16 07:26] LABS: CREATININE FOR GFR 1.34 MG/DL (0.70-1.30); GLOMERULAR FILTRATION RATE 53.7 (>35); POTASSIUM SERUM 4.2 MEQ/L (3.5-5.1)
[2017-07-16] MEDS: HumaLOG INSULIN (NovoLOG) PER UNIT SC SCH ×2 (07:54→12:00)
[2017-07-16] MEDS: SENOKOT S TAB PO SCH (07:54)
[2017-07-16] MEDS: LACTOBACILLUS ACIDOPHILUS CAP (BACID) PO SCH (07:54)
[2017-07-16] MEDS: TIMOLOL MALEATE 0.25% OPHTH SOLN 5 ML OU SCH (07:55)
[2017-07-16] MEDS: FEBUXOSTAT 40 MG TABLET (ULORIC) PO SCH (07:55)
[2017-07-16] MEDS: FERROUS SULFATE 325MG TAB PO SCH (07:55)
[2017-07-16] MEDS: MAGNESIUM OXIDE 400 MG TAB (MAG-OX) PO SCH (07:55)
[2017-07-16] MEDS: MUPIROCIN 2% OINT 22 GM TUBE TOP SCH (07:56)
[2017-07-16] MEDS ORDERED: MAG400TA PO (09:25)
[2017-07-16] MEDS ORDERED: FERR1TAB8 PO (09:25)
--- NOTE | 2017-07-16 20:32 | DSES ---
DATE OF ADMISSION: 07/06/2017 DATE OF DISCHARGE: 07/16/2017 DISCHARGE DIAGNOSIS: Right lower extremity cellulitis. SECONDARY DIAGNOSES: 1. Acute kidney injury. 2. Leukocytosis. 3. Multifactorial anemia. 4. Atrial fibrillation. 5. Glaucoma. 6. Diabetes. 7. Hypertension. 8. Benign prostatic hypertrophy. 9. Dyslipidemia. HOSPITAL COURSE: The patient is an 87-year-old man who was admitted on July 06. At the time he came with complaints of pain in his foot. Patient was admitted to the hospitalist service. He did have acute kidney injury. He was seen by Dr. Borges. The patient's renal function did gradually improve with hydration and treatment of his infection. He was also seen by Dr. Geller of podiatry, who did evaluate the ulcer at the distal tip of his 2nd toe. The patient did undergo a bedside procedure, where the ulcer was debrided, purulence was expressed, and necrotic tissue debrided. The patient tolerated the procedure well. He gradually improved with antibiotics. He was seen and examined by physical therapy (PT), occupational therapy (OT), and nutrition, who all cleared him for discharge. Patient did not feel he needed any services at home. The patient's was able to take him home today. SUBJECTIVE: The patient reports he feels well. He has no complaints. OBJECTIVE: VITAL SIGNS: Temperature 98.3, pulse 70, respiratory rate 18, blood pressure (BP ) 121/85, oxygen saturation 100% on room air. GENERAL: He is an elderly, obese man lying flat in bed in no distress. HEENT: Cranial nerves II-XII are grossly intact. He is very hard of hearing. He has moist mucous membranes. No elevation in central venous pressure (CVP). CARDIOVASCULAR: S1, S2, irregularly irregular. RESPIRATORY: Clear. ABDOMEN: Obese. EXTREMITIES: No clubbing, cyanosis, or edema. His dressing is clean, dry, and intact. LABORATORY STUDIES: WBC 8.7, hemoglobin 9.6, platelet count 185. Chemistry panel: Sodium 142, potassium 4.2, chloride 109, bicarbonate 23, BUN 31 , creatinine 1.3. His CRP trended down to 0.77, where it peaked at 13.5. His wound culture grew Staphylococcus aureus sensitive to tetracycline. He did have a renal ultrasound that revealed chronic medical renal disease and a 2 cm cyst on the left kidney and a 1.1 cm cyst on the right kidney. He also had a duplex ultrasound that revealed no evidence of deep vein thrombosis (DVT). He did have a right inguinal lymph node, measuring 4 x 1 x 2.5 cm at this time that was incidentally noted. He had an x-ray of the foot that revealed no soft tissue gas or bony erosive changes. ASSESSMENT AND PLAN: This is an 87-year-old man with resolved right lower extremity cellulitis. 1. Right lower extremity cellulitis. He completed a course of antibiotics. He was seen by Dr. Geller. He underwent debridement. The patient will require further followup with Dr. 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 2. Leukocytosis and fever, resolved, secondary to the above. 3. Anemia, likely multifactorial with iron deficiency and chronic disease. He is on ferrous sulfate. 4. Atrial fibrillation. He is anticoagulated with Xarelto. He does not have any rate controlling agents, stool occult blood was positive. I recommend the patient undergo an outpatient colonoscopy. 5. Glaucoma. The patient is on timolol and Xalatan. 6. Diabetes. He is on sliding-scale insulin. 7. Benign prostatic hypertrophy (BPH). He is on Flomax. 8. Dyslipidemia. He is on Crestor. 9. Acute kidney injury, resolved. 10. Deep vein thrombosis (DVT) prophylaxis. The patient is on Xarelto. DISPOSITION: The patient is being discharged home to the care of his . He has been visited by physical therapy (PT) and occupational therapy (OT). He has had a nutritional assessment. He is to followup with DR. Geller within 1-2 weeks, his primary care physician (PCP) in 7 days, and consider outpatient referral for colonoscopy. His activity is as tolerated. His diet is as prior to admission. He is to return to the emergency room (ER) if symptoms worsen. MEDICATIONS AT THE TIME OF DISCHARGE: - ferrous sulfate 325 mg twice a day - magnesium oxide 400 mg daily - chlorthalidone 100 mg daily - febuxostat 40 mg daily - metformin 500 mg every evening - Xarelto 50 mg every evening - rosuvastatin 10 mg weekly on Mondays - tamsulosin 0.4 mg at bedtime - timolol 0.25% solution one drop each eye daily - Travoprost one drop each eye daily at bedtime. He is to stop taking Aldactone, as his blood pressure was well controlled. Patient was only mildly hypertensive here and likely can be controlled with some chlorthalidone. MTDD
--- NOTE | 2017-07-18 13:40 | CR ---
REQUESTING PHYSICIAN: Dr. Aramis Campos CONSULTING PHYSICIAN: Dr. Saad Borges REASON FOR CONSULTATION: Management of acute kidney injury superimposed on chronic kidney disease. CHIEF COMPLAINT: Patient presented to the emergency room because of right foot pain, swelling, along with fevers. HISTORY OF PRESENT ILLNESS: Mr. 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 He follows up with Dr. Solis in the clinic. He has multiple other comorbidities as mentioned below. He presented to the emergency room with right foot pain and swelling along with fevers and chills. Maximum temperature was 104 degrees Fahrenheit, as reported by his . Patient was found to have cellulitis of the right foot. He was started on IV antibiotics. His creatinine on admission was 2.4. Nephrology service was called on board for further help in the management of chronic kidney disease in the setting of sepsis and insulin-dependent diabetes. I saw the patient today morning at the bedside. He was getting IV antibiotics. Today morning he was afebrile. He was hemodynamically stable, and he said he was feeling better as compared with yesterday. MEDICAL HISTORY: 1. 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 Baseline creatinine between 1.6-1.9. 2. History of right heart failure with pulmonary hypertension. 3. Atrial fibrillation, on anticoagulation. 4. Hypertension. 5. Diabetes mellitus, type 2. 6. Hyperlipidemia. 7. Gout. 8. Peripheral vascular disease. SURGICAL HISTORY: 1. History of appendectomy. 2. Status post pacemaker. 3. Status post transurethral resection of prostate. ALLERGIES: Patient is allergic to BRIMONIDINE. FAMILY HISTORY: No significant family history of end-stage renal disease requiring hemodialysis. SOCIAL HISTORY: Patient lives with his . He denies any illicit drug abuse or alcohol abuse. REVIEW OF SYSTEMS: CONSTITUTIONAL: Patient denies any chills or rigors at this time, but he reports he had fevers at home. EYES: He denies any blurry vision or double vision. ENT: Patient reports he is hard of hearing. CARDIOVASCULAR: He denies any chest pain or palpitations. RESPIRATORY: He denies any shortness of breath or wheezing. GASTROINTESTINAL: He denies any pain in abdomen or constipation. GENITOURINARY: He denies any dysuria, hematuria. MUSCULOSKELETAL: Patient reports right leg pain and swelling. ENDOCRINE: He reports history of diabetes, type 2. HEMATOLOGIC/ONCOLOGIC: He denies any easy bruising or bleeding. CENTRAL NERVOUS SYSTEM: He denies any weakness, numbness, or any history of stroke. All other review of systems is negative. PHYSICAL EXAMINATION: GENERAL: Patient is awake, alert, oriented times three, lying in bed. Hard of hearing. Otherwise no apparent distress VITAL SIGNS: Temperature is 99.6 degrees Fahrenheit, blood pressure is 120/59, pulse is 83, respiratory rate of 16, saturating 99% on room air. Intake and output: Urine output recorded since overnight is 600 mL. Weight in the bed scale is 88.7 kg. HEAD AND NECK: Extraocular muscles intact. Pupils equally round and reactive to light. Mucous membranes are moist. Neck is supple. There is no jugular venous distention (JVD). CARDIOVASCULAR: S1, S2, regular rate. No murmur, rub, or gallop. RESPIRATORY: Chest is clear to auscultation bilaterally. Bilateral equal air entry. No rales or rhonchi. ABDOMEN: Soft. Positive bowel sounds. Nontender. No ascites. No organomegaly. MUSCULOSKELETAL: Patient has dressing on the right foot because of right foot infection, and there is trace edema of the bilateral lower extremities. PSYCHIATRIC: Normal mood and affect. CENTRAL NERVOUS SYSTEM: No focal neurologic deficit. Power is 5/5 in bilateral upper extremities. LABORATORY REVIEW: CBC showed a WBC 11.3, hemoglobin is 7.3, platelets are 118. GTT is 98.3 at this time. Urinalysis showed negative blood, negative nitrite, negative leukocyte esterase , negative protein. Total random sodium was 20, random potassium is 49.6, random chloride was 56. BMP showed a sodium of 143, potassium 3.3, chloride 111, bicarbonate is 20, BUN is 60, creatinine is 2.3; it was 2.4 on admission. Glucose is 184, lactate is 1.6 now, calcium 8.2, magnesium 1.7, albumin 2.9. Microbiology: Blood cultures are negative so far. Urine cultures are pending. IMAGING DATA: A renal ultrasound was done today, which showed increased renal cortical echogenicity, 2.7 cm cyst in the left kidney and 1.1 cm cyst in the right kidney. CURRENT INPATIENT MEDICATIONS: Patient's medications were all reviewed by me. He is currently on: - normal saline at 80 mL an hour - Zosyn 2.25 gram IV every 8 hours - heparin according to protocol - vancomycin 1 gram IV every 24 - I stopped his vitamin C - Senokot one tablet by mouth twice a day - Uloric 40 mg daily - iron tablet 325 mg by mouth twice a day - heparin subcutaneous - insulin sliding scale - magnesium oxide 400 mg by mouth times one dose - Zofran as needed - Percocet as needed - potassium chloride 20 mEq one dose - rosuvastatin 10 mg daily - Flomax 0.4 mg at bedtime ASSESSMENT: An 87-year-old male with past medical history of insulin-dependent diabetes mellitus, peripheral vascular disease, atrial fibrillation, on anticoagulation, hypertension, chronic kidney disease, 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 PLAN: 1. Acute kidney injury superimposed on chronic kidney disease. It is secondary to dehydration, volume depletion, and sepsis. Continue the IV fluid hydration. Avoid the angiotensin-converting enzyme (CYNTHIA) inhibitors, IV contrast studies, non-steroidal anti-inflammatory drugs (NSAIDs) and diuretics at this time. Renal function is improving. 2. Sepsis secondary to right lower extremity cellulitis. Preliminary blood cultures are pending. Patient was given IV fluid hydration. Lactate is coming down. Okay to continue vancomycin and Zosyn at this time. 3. Diabetes mellitus, type 2. The patient was on metformin, which was stopped. Continue insulin sliding scale. 4. Atrial fibrillation on anticoagulation. Patient is currently on Xarelto 15 mg by mouth daily. Continue the current dose. 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 Continue current dose of Uloric. 6. Anemia secondary to chronic kidney disease. Iron studies showed iron deficiency anemia; however, because of acute infection, I will not give the IV infusion at this time. Continue the oral iron. There is no urgent need to do blood transfusion. Once the acute infection is treated patient will be given IV iron infusion. If hemoglobin stays below 8, patient can be given packed red blood cells (PRBC) transfusion. 7. Hypokalemia. Patient was given a dose of potassium chloride 20 mEq by mouth times one dose today morning. Thank you for involving us in the care of this patient. We shall be happy to follow the patient along with you tomorrow morning. [facility]
== END 2017-07-16 12:30 | disposition home or self-care (01) | DRG 872 ==
LOC: M ED 12:01 → M ED INP 14:54 → M PCU 18:51 → M MS4PR 07-10 21:39
PROVIDERS: ADMIT Hospitalist; ATTEND Hospitalist
PROC: 0HCMXZZ Extirpation of Matter from Right Foot Skin, External Approach (ICD-10-PCS; principal; 2017-07-07)
PROC: 30233N1 Transfusion of Nonautologous Red Blood Cells into Peripheral Vein, Percutaneous Approach (ICD-10-PCS; 2017-07-08)
DX: A41.9 Sepsis, unspecified organism (principal); L03.115 Cellulitis of right lower limb; N18.4 Chronic kidney disease, stage 4 (severe); D62 Acute posthemorrhagic anemia; N17.9 Acute kidney failure, unspecified; E87.2 Acidosis; I12.9 Hypertensive chronic kidney disease with stage 1 through stage 4 chronic kidney disease, or unspecified chronic kidney disease; E11.621 Type 2 diabetes mellitus with foot ulcer; E78.5 Hyperlipidemia, unspecified; M10.30 Gout due to renal impairment, unspecified site; N40.0 Benign prostatic hyperplasia without lower urinary tract symptoms; H40.9 Unspecified glaucoma; I48.91 Unspecified atrial fibrillation; Z79.01 Long term (current) use of anticoagulants; Z79.84 Long term (current) use of oral hypoglycemic drugs; Z79.899 Other long term (current) drug therapy; Z95.0 Presence of cardiac pacemaker; Z88.8 Allergy status to other drugs, medicaments and biological substances; B95.8 Unspecified staphylococcus as the cause of diseases classified elsewhere; D63.1 Anemia in chronic kidney disease; L97.519 Non-pressure chronic ulcer of other part of right foot with unspecified severity

== ENCOUNTER → 2017-08-23 | Outpatient (CLI) | payer MEDICARE, BC, OTHER ==
[~2017-08-23] MED LIST changes: +ASCO250T PO; +BETI1SOL OU; +CHLO50TA PO; +FEBU40TA PO; +FERR1TAB8 PO; +FLOM5CAP PO; +MAG400TA PO; +METF500T13 PO; +ROSU10TA2 PO; +SPIR25TA2 PO; +TRAV04OPD OU; +XARE15TA PO
--- NOTE | 2017-08-23 11:15 | REP ---
LIMITED PELVIC ULTRASOUND: HISTORY: Enlarged lymph node. COMPARISON: 07/06/2017 A single enlarged lymph node is present. The lymph node measures 2.8 x 0.6 x 1.8 cm and is decreased in size compared to the previous study. IMPRESSION: There is a single enlarged lymph node that is decreased in size compared to the previous study. Signed by Kory Montana MD 08/23/2017 11:15 A
== END ==
LOC: M RAD 10:23
PROVIDERS: ATTEND Family Medicine
DX: R59.0 Localized enlarged lymph nodes (principal)

== ENCOUNTER 2017-09-22 06:50 | Day surgery (SDC) | payer MEDICARE, BC, OTHER ==
[~2017-09-22] VITALS: Ht 177.8 cm; Wt 87.0 kg
[~2017-09-22 06:50] MED LIST changes: +FERR325T3 PO
[2017-09-22] MEDS ORDERED: NS 1,000 ML IV ONE (07:00)
[2017-09-22] MEDS ORDERED: LIDOCAINE 2% INJ 100 MG/5 ML SDV (FOR ANES.) As Ordered ONE (07:38)
[2017-09-22] MEDS ORDERED: PROPOFOL 200 MG/20 ML VIAL As Ordered ONE ×2 (07:38→08:03)
--- NOTE | 2017-09-22 07:45 | ROOR ---
Patient Name: Betito Tan Procedure Date: 09/22/2017 7:32 AM Date of : 1930 Age: 87 Room: [facility] Gender: Male Note Status: Finalized Procedure: Upper GI endoscopy Indications: Iron deficiency anemia Providers: Chay PINK MD Referring MD: Ruddy Pedersen MD Requesting Provider: Medicines: Monitored Anesthesia Care Complications: No immediate complications. Procedure: Pre-Anesthesia Assessment: - The heart rate, respiratory rate, oxygen saturations, blood pressure, adequacy of pulmonary ventilation, and response to care were monitored throughout the procedure. The Endoscope was introduced through the mouth, and advanced to the third part of duodenum. The upper GI endoscopy was accomplished without difficulty. The patient tolerated the procedure well. Findings: The esophagus was normal. The stomach was normal. The examined duodenum was normal. Impression: - Normal esophagus. - Normal stomach. - Normal examined duodenum. - No specimens collected. Recommendation: - Perform a colonoscopy today. Chay Pink MD Chay PINK MD 09/22/2017 7:43:29 AM This report has been signed electronically. Number of Addenda: 0 Note Initiated On: 09/22/2017 7:32 AM Estimated Blood Loss: Estimated blood loss: none.
--- NOTE | 2017-09-22 08:32 | ROOR ---
Patient Name: Betito Tan Procedure Date: 09/22/2017 7:33 AM Date of : 1930 Age: 87 Room: [facility] Gender: Male Note Status: Finalized Procedure: Colonoscopy Indications: Iron deficiency anemia Providers: Chay PINK MD Referring MD: Ruddy Pedersen MD Requesting Provider: Medicines: Monitored Anesthesia Care Complications: No immediate complications. Procedure: Pre-Anesthesia Assessment: - The heart rate, respiratory rate, oxygen saturations, blood pressure, adequacy of pulmonary ventilation, and response to care were monitored throughout the procedure. The Colonoscope was introduced through the anus and advanced to 5 cm into the ileum. The colonoscopy was performed without difficulty. The patient tolerated the procedure well. The quality of the bowel preparation was adequate. Findings: The perianal and digital rectal examinations were normal. (EXAM: Complete, PREP:Adequate) The terminal ileum appeared normal. A 25 mm polyp was found in the hepatic flexure. The polyp was multi-lobulated. The polyp was removed with a piecemeal technique using a hot snare. Resection and retrieval were complete. To prevent bleeding after the polypectomy, five hemostatic clips were successfully placed (MR conditional). There was no bleeding at the end of the procedure. A 8 mm polyp was found in the rectum. The polyp was semi-pedunculated. The polyp was removed with a hot snare. Resection and retrieval were complete. To prevent bleeding after the polypectomy, two hemostatic clips were successfully placed (MR conditional). There was no bleeding at the end of the procedure. The exam was otherwise without abnormality on direct and retroflexion views. Impression: - (EXAM: Complete, PREP:Adequate) - The examined portion of the ileum was normal. - One 25 mm polyp at the hepatic flexure, removed piecemeal using a hot snare. Resected and retrieved. Clips (MR conditional) were placed. - One 8 mm polyp in the rectum, removed with a hot snare. Resected and retrieved. Clips (MR conditional) were placed. - The examination was otherwise normal on direct and retroflexion views. Recommendation: - Resume Xarelto (rivaroxaban) at prior dose in 3 days. - Await pathology results. - If the pathology report is benign, then repeat colonoscopy for surveillance after piecemeal polypectomy in 6 months. - Perform a computed tomographic (CT scan) enterography at appointment to be scheduled. - (capsule endoscopy contraindicated with pacemaker) Chay Pink MD Chay PINK MD 09/22/2017 8:31:42 AM This report has been signed electronically. Number of Addenda: 0 Note Initiated On: 09/22/2017 7:33 AM Estimated Blood Loss: Estimated blood loss: none.
[2017-09-22 09:40] VITALS: BP 141/72
== END 2017-09-22 09:10 | disposition home or self-care (01) ==
LOC: M OPP 06:50
PROVIDERS: ATTEND Internal Medicine Gastroenterology
DX: D50.9 Iron deficiency anemia, unspecified (principal); K62.1 Rectal polyp; D12.3 Benign neoplasm of transverse colon; I48.91 Unspecified atrial fibrillation; I12.9 Hypertensive chronic kidney disease with stage 1 through stage 4 chronic kidney disease, or unspecified chronic kidney disease; E78.5 Hyperlipidemia, unspecified; Z95.0 Presence of cardiac pacemaker; E11.9 Type 2 diabetes mellitus without complications; M19.90 Unspecified osteoarthritis, unspecified site; N18.9 Chronic kidney disease, unspecified; N40.0 Benign prostatic hyperplasia without lower urinary tract symptoms; F17.290 Nicotine dependence, other tobacco product, uncomplicated; Z88.8 Allergy status to other drugs, medicaments and biological substances; Z79.84 Long term (current) use of oral hypoglycemic drugs; Z79.01 Long term (current) use of anticoagulants; Z79.899 Other long term (current) drug therapy; Z80.3 Family history of malignant neoplasm of breast; Z80.8 Family history of malignant neoplasm of other organs or systems

== ENCOUNTER → 2017-10-11 | Outpatient (CLI) | payer MEDICARE, BC, OTHER ==
[~2017-10-11] MED LIST changes: +GLUCAGON FOR INJ 1 MG VIAL (J1610) As Ordered ONE; +VoLumen 0.1% SUSPENSION 450ML BOTTLE As Ordered ONE
--- NOTE | 2017-10-11 16:33 | REP ---
CT ABDOMEN PELVIS WITH ORAL CONTRAST ONLY (CT ENTEROGRAPHY): 10/11/2017. Clinical history: Iron-deficiency anemia. Evaluate for source of bleeding. The patient not a candidate for IV contrast because of elevated creatinine. Technique: VOLUMEN 0.1% in 450 ml bottles with three bottles given per our protocol. Glucagon 0.66 mg IV also given. Scanning through the abdomen and pelvis then performed with coronal and sagittal reconstructions and MIP reformats with 5 mm thick slab. Findings: CT abdomen: Some dependent atelectatic and fibrotic changes in the bases without effusion or infiltrate. There is cardiomegaly with left atrial ventricular enlargement as well as patient leads overlying the heart. No pericardial effusion. No gross hiatal hernia. Stomach filled with retained fluid. Liver is not enlarged and shows no focal hepatic mass. Spleen has a maximum vertical diameter 11.8 cm. Degenerative changes throughout the spine. Disc space narrowing and marginal osteophytes but no acute compression deformities. Posterior elements with degenerative change but no fractures and normal alignment noted. Ribs intact. The adrenal glands were normal. Pancreas grossly intact. Aorta with calcifications but no aneurysm. There is atrophy of the right kidney with some scarring and lobation. The left kidney shows less atrophy and lower pole simple cyst. No renal stone or hydronephrosis. No hydroureter. Colon shows scattered loops of bowel. There is a metallic density in the right colon. This is seen on the culinary artist image overlying the cecum. Colon without colitis or diverticulitis, stricture or mass in the abdomen proper. Small bowel loops are all fluid-filled and adequately filled. No gross mass is seen. No gross thickening of the bowel wall can be determined but in the absence of IV contrast differentiation between density of the bowel wall and the fluid in the bowel lumen is difficult. This significantly diminishes sensitivity of the examination for intraluminal mucosal lesion. No periaortic or mesenteric pathologic sized lymphadenopathy. CT pelvis. The sacrum, SI joints, left iliac bone, acetabulum and pubic rami were unremarkable. The hip was intact. The right iliac wing and acetabulum to the ischia suggest there may be some Paget's disease. Right hip was unremarkable. Small bowel loops in the deep pelvis are not abnormally dilated. No inflammatory changes are seen adjacent to small bowel loops or colon in the pelvis. Moderate retained stool from distal left colon to rectosigmoid, overall some mild constipation. No abnormal dilatation or inflammatory changes about small bowel loops in the deep pelvis. Bladder partially filled but without stone, mass or wall thickening. No distal ureteral dilatation or stone. No bowel herniation in the ventral abdominal and pelvic wall with omental fat extending into both inguinal canals, right more than left, but no bowel hernia. No inguinal adenopathy. Impression: 1. The CT enterography limited by lack of IV contrast and subsequent poor differentiation of the bowel wall from fluid in the lumen. No gross mass, dilated loop or inflammatory changes in the mesentery adjacent to small bowel loops.2. Mild to moderate retained stool in areas of the colon without signs of colitis, diverticulitis or mass. No stricture. 3. No ascites, adenopathy or other acute finding. Solid organs upper abdomen showed no acute abnormality. There are chronic changes of the kidneys with atrophy bilaterally right greater than left. Signed by Willard Baca MD 10/11/2017 08:36 P
== END ==
LOC: M RAD 11:57
PROVIDERS: ATTEND Internal Medicine Gastroenterology
DX: D50.9 Iron deficiency anemia, unspecified (principal)
CPT/HCPCS: 74176; J1610

== ENCOUNTER → 2018-04-18 | Day surgery (SDC) | payer MEDICARE, BC, OTHER ==
[~2018-04-18] MED LIST changes: -/ASCO250TA OR; -/FENO14TA PO; -/TAMS4CA PO; -ALLO100T PO; -ALLO300T2 PO; -ASCO250T PO; -ASPI325T PO; -ASPI81TA85 PO; -ATEN50TA2 PO; -BETI1SOL OU; -CHLO50TA PO; -CRES5TAB PO; -DIGO0.126 OR; -DILA100C PO; -ENAL20TA PO; -FEBU40TA PO; -FERR1TAB8 PO; -FERR325T3 PO; -FLOM5CAP PO; -GLIP5TAB2 PO; -GLUCAGON FOR INJ 1 MG VIAL (J1610) As Ordered ONE; +LIDOCAINE 2% INJ 100 MG/5 ML SDV (FOR ANES.) As Ordered; -MAG400TA PO; -MAXZTA PO; -METF1000 PO; -METF500T13 PO; -NICA20CA OR; -OMEP40CA2 PO; +PROPOFOL 200 MG/20 ML VIAL As Ordered; -ROSU10TA2 PO; -SENO8.6T9 OR; -SPIR25TA2 PO; -TRAV04OPD OU; -TRIAMTERENE PO; -TYLE325T5 PO; -VoLumen 0.1% SUSPENSION 450ML BOTTLE As Ordered ONE; -XARE15TA PO
[2018-04-18] MEDS: NS 1,000 ML IV (07:05)
== END | disposition home or self-care (01) ==
LOC: M OPP 06:46
DX: Z09 Encounter for follow-up examination after completed treatment for conditions other than malignant neoplasm (principal); D12.5 Benign neoplasm of sigmoid colon; D12.0 Benign neoplasm of cecum; Z86.010 Personal history of colon polyps; Z98.890 Other specified postprocedural states; E11.9 Type 2 diabetes mellitus without complications; I10 Essential (primary) hypertension; N40.0 Benign prostatic hyperplasia without lower urinary tract symptoms; I48.91 Unspecified atrial fibrillation; Z79.899 Other long term (current) drug therapy; Z79.84 Long term (current) use of oral hypoglycemic drugs; Z95.0 Presence of cardiac pacemaker; Z80.0 Family history of malignant neoplasm of digestive organs; Z80.3 Family history of malignant neoplasm of breast
CPT/HCPCS: 45385

== ENCOUNTER → 2018-05-01 | Outpatient (REF) | payer MEDICARE, BC, OTHER ==
[2018-05-01 12:46] LABS: HEMATOCRIT 27.8 % (42.0-52.0); HEMOGLOBIN 9.1 g/dl (13.5-17.5); MEAN CORPUSCULAR HEMOGLOBIN 30.3 pg (27.0-33.0); MEAN CORPUSCULAR HGB CONC 32.7 g/dl (32.0-36.5); MEAN CORPUSCULAR VOLUME 92.7 fl (80.0-96.0); PLATELET COUNT, AUTOMATED 130 10^3/uL (150-450); RED CELL DISTRIBUTION WIDTH 16.1 % (11.5-14.5); WHITE BLOOD COUNT 8.6 10^3/uL (4.0-10.0)
[2018-05-01 13:26] LABS: ANION GAP 13 MEQ/L (8-16); BLOOD UREA NITROGEN 40 MG/DL (7-18); CALCIUM LEVEL 8.2 MG/DL (8.8-10.2); CARBON DIOXIDE LEVEL 24 MEQ/L (21-32); CHLORIDE LEVEL 105 MEQ/L (98-107); CREATININE FOR GFR 1.96 MG/DL (0.70-1.30); GLOMERULAR FILTRATION RATE 34.5 (>35); GLUCOSE, FASTING 204 MG/DL (70-100); POTASSIUM SERUM 3.8 MEQ/L (3.5-5.1); SODIUM LEVEL 142 MEQ/L (136-145)
== END ==
LOC: M LABDRAWP 11:49
DX: D64.9 Anemia, unspecified (principal); N18.9 Chronic kidney disease, unspecified
CPT/HCPCS: 80048

== ENCOUNTER 2018-05-04 10:36 | Inpatient (IN) | payer MEDICARE, BC, OTHER ==
[2018-05-04 11:35] LABS: HEMATOCRIT 21.4 % (42.0-52.0); MEAN CORPUSCULAR HEMOGLOBIN 30.8 pg (27.0-33.0); MEAN CORPUSCULAR HGB CONC 32.7 g/dl (32.0-36.5); MEAN CORPUSCULAR VOLUME 94.3 fl (80.0-96.0); PLATELET COUNT, AUTOMATED 161 10^3/uL (150-450); RED BLOOD COUNT 2.27 10^6/uL (4.30-6.10); RED CELL DISTRIBUTION WIDTH 16.1 % (11.5-14.5); WHITE BLOOD COUNT 13.2 10^3/uL (4.0-10.0)
[2018-05-04 11:38] LABS: ADD MANUAL DIFFER YES; DIFF SLIDE NUMBER 216; POS COUNT POS FLAG; POSITIVE MORPH POS FLAG
[2018-05-04 11:43] LABS: VENOUS BASE EXCESS -6.6 (-2.0-2.0); VENOUS HCO3 19.5 MEQ/L (23.0-27.0); VENOUS O2 SATURATION 72.3 % (60.0-80.0); VENOUS PARTIAL PRESSURE CO2 41.7 mmHg (38.0-50.0); VENOUS PH 7.288 UNITS (7.330-7.430); VENOUS STANDARD HCO3 18.7 MEQ/L; VENOUS TOTAL CO2 20.8 MEQ/L (24.0-28.0)
[2018-05-04 11:45] LABS: BEDSIDE GLUCOSE 222 MG/DL (83-110)
[2018-05-04 11:55] LABS: AMMONIA 26 uMOL/L (<32)
[2018-05-04 11:55] LABS: ALBUMIN 3.2 GM/DL (3.2-5.2); ALBUMIN/GLOBULIN RATIO 1.45 (1.00-1.93); ALKALINE PHOSPHATASE 77 U/L (45-117); ALT/SGPT 19 U/L (12-78); ANION GAP 8 MEQ/L (8-16); AST/SGOT 14 U/L (7-37); BILIRUBIN,DIRECT 0.1 MG/DL (0.0-0.2); BILIRUBIN,TOTAL 0.4 MG/DL (0.2-1.0); BLOOD UREA NITROGEN 95 MG/DL (7-18); CALCIUM LEVEL 8.7 MG/DL (8.8-10.2); CARBON DIOXIDE LEVEL 25 MEQ/L (21-32); CHLORIDE LEVEL 106 MEQ/L (98-107); CPK CREATINE PHOSPHOKINASE 23 U/L (39-308); CREATININE FOR GFR 2.41 MG/DL (0.70-1.30); GLOMERULAR FILTRATION RATE 27.2 (>35); GLUCOSE, FASTING 226 MG/DL (70-100); POTASSIUM SERUM 4.4 MEQ/L (3.5-5.1); SODIUM LEVEL 139 MEQ/L (136-145); TOTAL PROTEIN 5.4 GM/DL (6.4-8.2); TROPONIN I < 0.02 NG/ML (< 0.10)
[2018-05-04 12:00] LABS: MB/CK RELATIVE INDEX 4.34 (< OR =4)
[2018-05-04 12:08] LABS: ANISOCYTOSIS 1+; ATYPICAL LYMPH 1 % (0-5); BANDS 2 % (< 11); BASOPHILS 1 % (0-4); EOSINOPHILS 2 % (0-5); LYMPHOCYTES 10 % (16-52); METAMYELOCYTES 1 % (0-0); MONOCYTES 2 % (0-8); MYELOCYTES 1 % (0-0); NEUTROPHILS 80 % (35-75); PLATELET ESTIMATE NORMAL (NORMAL)
[2018-05-04 12:09] LABS: MICROCYTOSIS 1+
[2018-05-04] MEDS: NS 1,000 ML IV ×2 (12:30→20:43)
[2018-05-04 12:35] LABS: OSMOLALITY SERUM 317 MOSM/KG (280-301)
[2018-05-04 12:40] LABS: IMMEDIATE SPIN CROSSMATCH 1 2
[2018-05-04] MEDS ORDERED: GLUCOSE 4 GM CHEW TABLET PO (14:30)
[2018-05-04] MEDS ORDERED: ONDANSETRON 4MG/2ML VIAL (J2405) IV (14:30)
[2018-05-04] MEDS ORDERED: ACETAMINOPHEN TAB 650MG DOSE (2X325MG) PO (14:30)
[2018-05-04] MEDS ORDERED: DEXTROSE 50% 50 ML SYRINGE IV (14:30)
[2018-05-04] MEDS ORDERED: GLUCAGON FOR INJ 1 MG VIAL (J1610) SC (14:30)
[2018-05-04] MEDS: FUROSEMIDE 20 MG/2 ML VIAL (J1940) IV (15:26)
[2018-05-04 16:08] LABS: KETONE, URINE AUTO RFX NEGATIVE (NEGATIVE); MUCUS, URINE RFX SMALL (NEGATIVE); NITRITE, URINE AUTO RFX NEGATIVE (NEGATIVE); RBC, URINE AUTO RFX 0 /HPF (0-3); SPECIFIC GRAVITY UR AUTO RFX 1.011 (1.002-1.035); SQUAM EPITHELIAL CELL UR AURFX 0 /HPF (0-6); WBC, URINE AUTO RFX 2 /HPF (0-3)
[2018-05-04 16:09] LABS: LEUKOCYTE ESTERASE UR AUTO RFX 1+ (NEGATIVE)
[2018-05-04] MEDS: FEBUXOSTAT 40 MG TABLET (ULORIC) PO (17:02)
[2018-05-04] MEDS: CHLORTHALIDONE 12.5MG PER 1/2 TABLET PO (17:02)
[2018-05-04 18:49] LABS: BEDSIDE GLUCOSE 189 MG/DL (83-110)
[2018-05-04] MEDS: HumaLOG INSULIN (NovoLOG) PER UNIT SC ×2 (18:56→23:57)
[2018-05-04 20:28] LABS: BEDSIDE GLUCOSE 209 MG/DL (83-110)
[2018-05-04] MEDS: SPIRONOLACTONE 25 MG TAB PO (20:43)
[2018-05-04] MEDS: PANTOPRAZOLE 40MG INJ (PROTONIX) (C9113) IV (20:43)
[2018-05-04] MEDS: TAMSULOSIN 0.4 MG CAP PO (20:43)
[2018-05-04] MEDS: LATANOPROST 0.005% OPHTH SOLN 2.5 ML OU (20:44)
[2018-05-04] MEDS ORDERED: HumaLOG INSULIN (NovoLOG) PER UNIT SC (21:00)
[2018-05-04 21:50] LABS: HEMOGLOBIN 8.3 g/dl (13.5-17.5)
[2018-05-04 23:49] LABS: BEDSIDE GLUCOSE 175 MG/DL (83-110)
[2018-05-05 04:55] LABS: HEMATOCRIT 22.3 % (42.0-52.0); HEMOGLOBIN 7.5 g/dl (13.5-17.5); MEAN CORPUSCULAR HEMOGLOBIN 30.2 pg (27.0-33.0); MEAN CORPUSCULAR HGB CONC 33.6 g/dl (32.0-36.5); MEAN CORPUSCULAR VOLUME 89.9 fl (80.0-96.0); PLATELET COUNT, AUTOMATED 135 10^3/uL (150-450); RED BLOOD COUNT 2.48 10^6/uL (4.30-6.10); WHITE BLOOD COUNT 13.4 10^3/uL (4.0-10.0)
[2018-05-05 05:05] LABS: ADD MANUAL DIFFER YES; DIFF SLIDE NUMBER 65; POS COUNT POS FLAG; POSITIVE MORPH POS FLAG
[2018-05-05 05:15] LABS: ANION GAP 11 MEQ/L (8-16); BLOOD UREA NITROGEN 108 MG/DL (7-18); CARBON DIOXIDE LEVEL 23 MEQ/L (21-32); CHLORIDE LEVEL 109 MEQ/L (98-107); CREATININE FOR GFR 1.92 MG/DL (0.70-1.30); GLOMERULAR FILTRATION RATE 35.4 (>35); GLUCOSE, FASTING 171 MG/DL (70-100); POTASSIUM SERUM 3.6 MEQ/L (3.5-5.1); SODIUM LEVEL 143 MEQ/L (136-145)
[2018-05-05 05:45] LABS: EOSINOPHILS 2 % (0-5); LYMPHOCYTES 17 % (16-52); METAMYELOCYTES 1 % (0-0); MONOCYTES 9 % (0-8); MYELOCYTES 1 % (0-0); NEUTROPHILS 70 % (35-75); PLATELET ESTIMATE NORMAL (NORMAL)
[2018-05-05 05:46] LABS: POLYCHROMASIA 1+
[2018-05-05] MEDS: HumaLOG INSULIN (NovoLOG) PER UNIT SC ×3 (06:05→18:02)
[2018-05-05] MEDS: FEBUXOSTAT 40 MG TABLET (ULORIC) PO (08:24)
[2018-05-05] MEDS: TIMOLOL MALEATE 0.25% OPHTH SOLN 5 ML OU (08:24)
[2018-05-05] MEDS: CHLORTHALIDONE 12.5MG PER 1/2 TABLET PO (08:24)
[2018-05-05 09:54] LABS: HEMATOCRIT 18.5 % (42.0-52.0)
[2018-05-05 09:57] LABS: HEMOGLOBIN 6.4 g/dl (13.5-17.5)
[2018-05-05 10:17] LABS: IMMEDIATE SPIN CROSSMATCH 1 1
[2018-05-05] MEDS ORDERED: FUROSEMIDE 20 MG/2 ML VIAL (J1940) IV (10:30)
[2018-05-05 11:23] LABS: BEDSIDE GLUCOSE 167 MG/DL (83-110)
[2018-05-05] MEDS: FUROSEMIDE 20 MG/2 ML VIAL (J1940) IV ×3 (12:41→18:52)
[2018-05-05 13:14] LABS: IMMEDIATE SPIN CROSSMATCH 1 2
[2018-05-05] MEDS ORDERED: LIDOCAINE 2% INJ 100 MG/5 ML SDV (FOR ANES.) As Ordered (15:29)
[2018-05-05] MEDS ORDERED: PROPOFOL 200 MG/20 ML VIAL As Ordered (15:29)
[2018-05-05] MEDS ORDERED: PHENYLephrine HCL 500 MCG/5 ML (100MCG/ML) SYRINGE (J2370) As Ordered (15:47)
[2018-05-05] MEDS: PANTOPRAZOLE 40MG INJ (PROTONIX) (C9113) IV (17:23)
[2018-05-05 17:51] LABS: BEDSIDE GLUCOSE 153 MG/DL (83-110)
[2018-05-05] MEDS: MOM 30ML SUSPENSION UDC PO (18:15)
[2018-05-05] MEDS: GOLYTELY SOLN 4000 ML BTL PO (18:52)
[2018-05-05 20:02] LABS: HEMATOCRIT 32.5 % (42.0-52.0)
[2018-05-05 20:05] LABS: HEMOGLOBIN 10.9 g/dl (13.5-17.5)
[2018-05-05] MEDS: SPIRONOLACTONE 25 MG TAB PO (22:04)
[2018-05-05] MEDS: TAMSULOSIN 0.4 MG CAP PO (22:04)
[2018-05-05] MEDS: LATANOPROST 0.005% OPHTH SOLN 2.5 ML OU (22:05)
[2018-05-05 23:50] LABS: HEMATOCRIT 31.8 % (42.0-52.0); HEMOGLOBIN 10.8 g/dl (13.5-17.5)
[2018-05-06 01:40] LABS: BEDSIDE GLUCOSE 176 MG/DL (83-110)
[2018-05-06] MEDS: HumaLOG INSULIN (NovoLOG) PER UNIT SC ×5 (01:40→23:51)
[2018-05-06 05:21] LABS: HEMATOCRIT 25.8 % (42.0-52.0)
[2018-05-06 05:33] LABS: ANION GAP 12 MEQ/L (8-16); BLOOD UREA NITROGEN 91 MG/DL (7-18); CALCIUM LEVEL 7.5 MG/DL (8.8-10.2); CARBON DIOXIDE LEVEL 26 MEQ/L (21-32); CHLORIDE LEVEL 105 MEQ/L (98-107); CREATININE FOR GFR 1.83 MG/DL (0.70-1.30); GLOMERULAR FILTRATION RATE 37.4 (>35); GLUCOSE, FASTING 169 MG/DL (70-100); SODIUM LEVEL 143 MEQ/L (136-145)
[2018-05-06] MEDS: POTASSIUM CHLORIDE 10 MEQ SR TABLET PO (06:59)
[2018-05-06 07:35] LABS: NT-PRO BNP 621 PG/ML (<450)
[2018-05-06] MEDS ORDERED: fentaNYL 100 MCG/2 ML INJECTION (J3010) As Ordered (08:32)
[2018-05-06] MEDS ORDERED: LIDOCAINE 2% INJ 100 MG/5 ML SDV (FOR ANES.) As Ordered (08:32)
[2018-05-06] MEDS ORDERED: PROPOFOL 200 MG/20 ML VIAL As Ordered (08:32)
[2018-05-06] MEDS: TIMOLOL MALEATE 0.25% OPHTH SOLN 5 ML OU (09:00)
[2018-05-06] MEDS: GLUCAGON FOR INJ 1 MG VIAL (J1610) As Ordered (10:10)
[2018-05-06] MEDS: LR 1,000 ML IV (10:45)
[2018-05-06 11:56] LABS: BEDSIDE GLUCOSE 220 MG/DL (83-110)
[2018-05-06 12:31] LABS: HEMATOCRIT 28.3 % (42.0-52.0); HEMOGLOBIN 9.4 g/dl (13.5-17.5)
[2018-05-06] MEDS: FEBUXOSTAT 40 MG TABLET (ULORIC) PO (13:13)
[2018-05-06] MEDS: CHLORTHALIDONE 12.5MG PER 1/2 TABLET PO (13:14)
[2018-05-06 16:47] LABS: BEDSIDE GLUCOSE 191 MG/DL (83-110)
[2018-05-06 18:07] LABS: HEMATOCRIT 25.8 % (42.0-52.0); HEMOGLOBIN 8.8 g/dl (13.5-17.5)
[2018-05-06] MEDS: PANTOPRAZOLE 40MG INJ (PROTONIX) (C9113) IV (18:22)
[2018-05-06 20:47] LABS: BEDSIDE GLUCOSE 160 MG/DL (83-110)
[2018-05-06] MEDS: TAMSULOSIN 0.4 MG CAP PO (20:58)
[2018-05-06] MEDS: LATANOPROST 0.005% OPHTH SOLN 2.5 ML OU (20:58)
[2018-05-06] MEDS: SPIRONOLACTONE 25 MG TAB PO (20:58)
[2018-05-06 23:49] LABS: BEDSIDE GLUCOSE 113 MG/DL (83-110)
[2018-05-07 00:01] LABS: HEMATOCRIT 25.1 % (42.0-52.0); HEMOGLOBIN 8.5 g/dl (13.5-17.5)
[2018-05-07 05:12] LABS: HEMATOCRIT 25.4 % (42.0-52.0); HEMOGLOBIN 8.6 g/dl (13.5-17.5)
[2018-05-07 05:26] LABS: ANION GAP 8 MEQ/L (8-16); BLOOD UREA NITROGEN 60 MG/DL (7-18); CALCIUM LEVEL 7.4 MG/DL (8.8-10.2); CARBON DIOXIDE LEVEL 27 MEQ/L (21-32); CHLORIDE LEVEL 107 MEQ/L (98-107); GLOMERULAR FILTRATION RATE 43.6 (>35); GLUCOSE, FASTING 109 MG/DL (70-100); POTASSIUM SERUM 3.3 MEQ/L (3.5-5.1); SODIUM LEVEL 142 MEQ/L (136-145)
[2018-05-07] MEDS: KCL 40MEQ in NS 1000ML 1,000 ML IV ×2 (05:51→17:59)
[2018-05-07] MEDS: HumaLOG INSULIN (NovoLOG) PER UNIT SC ×3 (05:52→17:58)
[2018-05-07] MEDS: FEBUXOSTAT 40 MG TABLET (ULORIC) PO (08:16)
[2018-05-07] MEDS: TIMOLOL MALEATE 0.25% OPHTH SOLN 5 ML OU (08:16)
[2018-05-07 12:07] LABS: HEMATOCRIT 28.9 % (42.0-52.0); HEMOGLOBIN 9.5 g/dl (13.5-17.5)
[2018-05-07 17:20] LABS: BEDSIDE GLUCOSE 173 MG/DL (83-110)
[2018-05-07] MEDS: PANTOPRAZOLE 40MG INJ (PROTONIX) (C9113) IV (17:58)
[2018-05-07 18:25] LABS: HEMATOCRIT 27.8 % (42.0-52.0); HEMOGLOBIN 8.9 g/dl (13.5-17.5)
[2018-05-07] MEDS: TAMSULOSIN 0.4 MG CAP PO (20:21)
[2018-05-07] MEDS: LATANOPROST 0.005% OPHTH SOLN 2.5 ML OU (20:21)
[2018-05-08 00:05] LABS: HEMATOCRIT 25.5 % (42.0-52.0); HEMOGLOBIN 8.4 g/dl (13.5-17.5)
[2018-05-08 01:15] LABS: BEDSIDE GLUCOSE 103 MG/DL (83-110)
[2018-05-08] MEDS: HumaLOG INSULIN (NovoLOG) PER UNIT SC ×4 (01:22→18:15)
[2018-05-08 05:23] LABS: ANION GAP 7 MEQ/L (8-16); BLOOD UREA NITROGEN 37 MG/DL (7-18); CALCIUM LEVEL 7.2 MG/DL (8.8-10.2); CARBON DIOXIDE LEVEL 25 MEQ/L (21-32); CHLORIDE LEVEL 112 MEQ/L (98-107); CREATININE FOR GFR 1.44 MG/DL (0.70-1.30); GLOMERULAR FILTRATION RATE 49.3 (>35); GLUCOSE, FASTING 105 MG/DL (70-100); POTASSIUM SERUM 3.9 MEQ/L (3.5-5.1); SODIUM LEVEL 144 MEQ/L (136-145)
[2018-05-08] MEDS: KCL 40MEQ in NS 1000ML 1,000 ML IV (06:26)
[2018-05-08] MEDS: FEBUXOSTAT 40 MG TABLET (ULORIC) PO (09:45)
[2018-05-08] MEDS: TIMOLOL MALEATE 0.25% OPHTH SOLN 5 ML OU (09:45)
[2018-05-08 11:41] LABS: BEDSIDE GLUCOSE 107 MG/DL (83-110)
[2018-05-08 13:46] LABS: IMMEDIATE SPIN CROSSMATCH 1 2
[2018-05-08 18:03] LABS: BEDSIDE GLUCOSE 161 MG/DL (83-110)
[2018-05-08] MEDS: FUROSEMIDE 20 MG/2 ML VIAL (J1940) IV (18:15)
[2018-05-08] MEDS: PANTOPRAZOLE 40MG INJ (PROTONIX) (C9113) IV (18:15)
[2018-05-08] MEDS: LATANOPROST 0.005% OPHTH SOLN 2.5 ML OU (20:15)
[2018-05-08] MEDS: TAMSULOSIN 0.4 MG CAP PO (20:15)
[2018-05-09 00:11] LABS: BEDSIDE GLUCOSE 107 MG/DL (83-110)
[2018-05-09 05:57] LABS: BEDSIDE GLUCOSE 106 MG/DL (83-110)
[2018-05-09 06:00] LABS: HEMATOCRIT 29.7 % (42.0-52.0)
[2018-05-09] MEDS: HumaLOG INSULIN (NovoLOG) PER UNIT SC ×7 (06:00→20:35)
[2018-05-09 06:19] LABS: ANION GAP 10 MEQ/L (8-16); BLOOD UREA NITROGEN 24 MG/DL (7-18); CALCIUM LEVEL 7.5 MG/DL (8.8-10.2); CARBON DIOXIDE LEVEL 23 MEQ/L (21-32); CHLORIDE LEVEL 110 MEQ/L (98-107); GLOMERULAR FILTRATION RATE 55.5 (>35); GLUCOSE, FASTING 98 MG/DL (70-100); POTASSIUM SERUM 3.3 MEQ/L (3.5-5.1); SODIUM LEVEL 143 MEQ/L (136-145)
[2018-05-09] MEDS ORDERED: GLUCAGON FOR INJ 1 MG VIAL (J1610) SC (06:45)
[2018-05-09] MEDS ORDERED: DEXTROSE 50% 50 ML SYRINGE IV (06:45)
[2018-05-09] MEDS ORDERED: GLUCOSE 4 GM CHEW TABLET PO (06:45)
[2018-05-09] MEDS: POTASSIUM CHLORIDE 10 MEQ SR TABLET PO (08:21)
[2018-05-09] MEDS: TIMOLOL MALEATE 0.25% OPHTH SOLN 5 ML OU (08:22)
[2018-05-09] MEDS: FEBUXOSTAT 40 MG TABLET (ULORIC) PO (08:22)
[2018-05-09 11:44] LABS: BEDSIDE GLUCOSE 156 MG/DL (83-110)
[2018-05-09 12:33] LABS: HEMATOCRIT 31.7 % (42.0-52.0); HEMOGLOBIN 10.5 g/dl (13.5-17.5)
[2018-05-09] MEDS: ROSUVASTATIN 10 MG TAB (CRESTOR) PO (12:56)
[2018-05-09 16:39] LABS: BEDSIDE GLUCOSE 138 MG/DL (83-110)
[2018-05-09] MEDS: PANTOPRAZOLE 40MG INJ (PROTONIX) (C9113) IV (17:05)
[2018-05-09 18:37] LABS: HEMATOCRIT 33.1 % (42.0-52.0); HEMOGLOBIN 10.6 g/dl (13.5-17.5)
[2018-05-09 20:25] LABS: BEDSIDE GLUCOSE 183 MG/DL (83-110)
[2018-05-09] MEDS: TAMSULOSIN 0.4 MG CAP PO (20:53)
[2018-05-09] MEDS: LATANOPROST 0.005% OPHTH SOLN 2.5 ML OU (21:35)
[2018-05-10 01:06] LABS: HEMATOCRIT 30.1 % (42.0-52.0); HEMOGLOBIN 9.7 g/dl (13.5-17.5)
[2018-05-10 05:36] LABS: BASO # 0.1 10^3/uL (0.0-0.2); BASO % 0.5 % (0.0-1.0); EOS # 0.6 10^3/uL (0.0-0.50); EOS % 5.5 % (0.0-3.0); HEMATOCRIT 30.2 % (42.0-52.0); HEMOGLOBIN 9.9 g/dl (13.5-17.5); IMMATURE GRANULOCYTE % 0.8 % (0-3.0); LYMPH # 1.2 10^3/uL (1.5-4.5); LYMPH % 11.3 % (24.0-44.0); MEAN CORPUSCULAR HGB CONC 32.8 g/dl (32.0-36.5); MEAN CORPUSCULAR VOLUME 88.6 fl (80.0-96.0); MONO % 9.8 % (0.0-5.0); NEUTROPHILS # 7.4 10^3/uL (1.8-7.7); NEUTROPHILS % 72.1 % (36.0-66.0); PLATELET COUNT, AUTOMATED 116 10^3/uL (150-450); RED BLOOD COUNT 3.41 10^6/uL (4.30-6.10); RED CELL DISTRIBUTION WIDTH 16.2 % (11.5-14.5); WHITE BLOOD COUNT 10.2 10^3/uL (4.0-10.0)
[2018-05-10 05:53] LABS: ANION GAP 7 MEQ/L (8-16); BLOOD UREA NITROGEN 24 MG/DL (7-18); CALCIUM LEVEL 7.9 MG/DL (8.8-10.2); CARBON DIOXIDE LEVEL 23 MEQ/L (21-32); CHLORIDE LEVEL 111 MEQ/L (98-107); CREATININE FOR GFR 1.39 MG/DL (0.70-1.30); GLOMERULAR FILTRATION RATE 51.3 (>35); GLUCOSE, FASTING 115 MG/DL (70-100); POTASSIUM SERUM 3.7 MEQ/L (3.5-5.1); SODIUM LEVEL 141 MEQ/L (136-145)
[2018-05-10] MEDS: FEBUXOSTAT 40 MG TABLET (ULORIC) PO (07:40)
[2018-05-10] MEDS: HumaLOG INSULIN (NovoLOG) PER UNIT SC ×2 (07:41→12:28)
[2018-05-10] MEDS: ROSUVASTATIN 10 MG TAB (CRESTOR) PO (07:41)
[2018-05-10] MEDS: POTASSIUM CHLORIDE 10 MEQ SR TABLET PO (07:41)
[2018-05-10] MEDS: TIMOLOL MALEATE 0.25% OPHTH SOLN 5 ML OU (07:47)
[2018-05-10 11:46] LABS: BEDSIDE GLUCOSE 162 MG/DL (83-110)
== END 2018-05-10 13:46 | disposition home health service (06) | DRG 920 ==
LOC: M PCU 05-05 11:31 → M ED 10:36 → M MSPAV 05-08 12:30 → M ED INP 14:20 → M MSPAV 17:32
PROC: 0DJ08ZZ Inspection of Upper Intestinal Tract, Via Natural or Artificial Opening Endoscopic (ICD-10-PCS; 2018-05-05 14:48)
PROC: 0DJ08ZZ Inspection of Upper Intestinal Tract, Via Natural or Artificial Opening Endoscopic (ICD-10-PCS; principal; 2018-05-05 15:31)
PROC: 0W3P8ZZ Control Bleeding in Gastrointestinal Tract, Via Natural or Artificial Opening Endoscopic (ICD-10-PCS; 2018-05-05 15:31)
PROC: 30233N1 Transfusion of Nonautologous Red Blood Cells into Peripheral Vein, Percutaneous Approach (ICD-10-PCS; 2018-05-05 15:31)
DX: K91.840 Postprocedural hemorrhage of a digestive system organ or structure following a digestive system procedure (principal); K92.2 Gastrointestinal hemorrhage, unspecified; D62 Acute posthemorrhagic anemia; N17.9 Acute kidney failure, unspecified; K63.3 Ulcer of intestine; N18.3 Chronic kidney disease, stage 3 (moderate); E11.9 Type 2 diabetes mellitus without complications; Z95.0 Presence of cardiac pacemaker; I48.91 Unspecified atrial fibrillation; N40.0 Benign prostatic hyperplasia without lower urinary tract symptoms; E78.5 Hyperlipidemia, unspecified; H40.9 Unspecified glaucoma; Z79.899 Other long term (current) drug therapy; Z88.8 Allergy status to other drugs, medicaments and biological substances; E87.6 Hypokalemia

== ENCOUNTER → 2018-05-23 | Outpatient (REF) | payer MEDICARE, OTHER ==
[2018-05-23 15:40] LABS: BASO # 0.1 10^3/uL (0.0-0.2); BASO % 0.9 % (0.0-1.0); EOS # 0.7 10^3/uL (0.0-0.50); EOS % 6.4 % (0.0-3.0); HEMATOCRIT 33.9 % (42.0-52.0); HEMOGLOBIN 11.2 g/dl (13.5-17.5); IMMATURE GRANULOCYTE % 0.9 % (0-3.0); LYMPH # 1.8 10^3/uL (1.5-4.5); LYMPH % 17.3 % (24.0-44.0); MEAN CORPUSCULAR HEMOGLOBIN 29.6 pg (27.0-33.0); MEAN CORPUSCULAR VOLUME 89.4 fl (80.0-96.0); MONO % 9.6 % (0.0-5.0); NEUTROPHILS # 6.8 10^3/uL (1.8-7.7); NEUTROPHILS % 64.9 % (36.0-66.0); PLATELET COUNT, AUTOMATED 184 10^3/uL (150-450); RED BLOOD COUNT 3.79 10^6/uL (4.30-6.10); RED CELL DISTRIBUTION WIDTH 15.6 % (11.5-14.5); RETIC HEMOGLOBIN EQUIVALENT 32.4 pg (24-36); RETICULOCYTE # 84.1 10^9/L (17-77); RETICULOCYTE % 2.2 % (0.5-1.5); WHITE BLOOD COUNT 10.4 10^3/uL (4.0-10.0)
[2018-05-23 16:09] LABS: ANION GAP 7 MEQ/L (8-16); BLOOD UREA NITROGEN 47 MG/DL (7-18); CALCIUM LEVEL 8.3 MG/DL (8.8-10.2); CARBON DIOXIDE LEVEL 29 MEQ/L (21-32); CHLORIDE LEVEL 103 MEQ/L (98-107); CREATININE FOR GFR 1.65 MG/DL (0.70-1.30); GLOMERULAR FILTRATION RATE 42.1 (>35); GLUCOSE, FASTING 114 MG/DL (70-100); IRON (FE) 88 UG/DL (65-175); NT-PRO BNP 1157 PG/ML (<450); PERCENT SATURATION 26.6 % (19.7-50.0); POTASSIUM SERUM 4.5 MEQ/L (3.5-5.1); SODIUM LEVEL 139 MEQ/L (136-145); TOTAL IRON BINDING CAPACITY 331 UG/DL (250-450)
== END ==
LOC: M SFHCPLAZ 14:47
DX: R60.0 Localized edema (principal); D50.0 Iron deficiency anemia secondary to blood loss (chronic)
CPT/HCPCS: 83550

== ENCOUNTER → 2018-08-10 | Outpatient (REF) | payer MEDICARE, OTHER ==
[2018-08-10 14:10] LABS: FERRITIN 34 NG/ML (26-388); IRON (FE) 72 UG/DL (65-175); PERCENT SATURATION 21.4 % (19.7-50.0); TOTAL IRON BINDING CAPACITY 337 UG/DL (250-450)
[2018-08-10 14:14] LABS: BASO # 0.1 10^3/uL (0.0-0.2); BASO % 0.6 % (0.0-1.0); EOS # 0.3 10^3/uL (0.0-0.50); EOS % 3.4 % (0.0-3.0); HEMATOCRIT 40.8 % (42.0-52.0); HEMOGLOBIN 13.3 g/dl (13.5-17.5); IMMATURE GRANULOCYTE % 0.6 % (0-3.0); LYMPH # 1.5 10^3/uL (1.5-4.5); LYMPH % 18.7 % (24.0-44.0); MEAN CORPUSCULAR HEMOGLOBIN 30.3 pg (27.0-33.0); MEAN CORPUSCULAR HGB CONC 32.6 g/dl (32.0-36.5); MEAN CORPUSCULAR VOLUME 92.9 fl (80.0-96.0); MONO # 0.8 10^3/uL (0.0-0.8); MONO % 10.4 % (0.0-5.0); NEUTROPHILS # 5.1 10^3/uL (1.8-7.7); NEUTROPHILS % 66.3 % (36.0-66.0); PLATELET COUNT, AUTOMATED 159 10^3/uL (150-450); RED BLOOD COUNT 4.39 10^6/uL (4.30-6.10); RED CELL DISTRIBUTION WIDTH 15.2 % (11.5-14.5); WHITE BLOOD COUNT 7.8 10^3/uL (4.0-10.0)
== END ==
LOC: M SFHCPLAZ 12:02
DX: D50.0 Iron deficiency anemia secondary to blood loss (chronic) (principal); Z23 Encounter for immunization
CPT/HCPCS: 83550

== ENCOUNTER → 2019-09-24 | Outpatient (REF) | payer MEDICARE, OTHER ==
[~2019-09-24] MED LIST changes: +/ASCO250TA OR; +ALLO100T PO; +ALLO300T2 PO; +ASCO250T PO; +ASPI325T PO; +ASPI81TA85 PO; +ATEN50TA2 PO; +BETI1SOL OU; +CHLO125TA PO; +CHLO50TA PO; +CRES5TAB PO; +DIGO0.126 OR; +DILA100C PO; +ENAL20TA PO; +FEBU40TA4 PO; +FERR1TAB8 PO; +FERR325T3 PO; +FLOM0.4C39 PO; +GLIP5TAB2 PO; -LIDOCAINE 2% INJ 100 MG/5 ML SDV (FOR ANES.) As Ordered; +MAG400TA PO; +MAGN400C PO; +MAXZTA PO; +METF1000 PO; +METF500T13 PO; +NICA20CA OR; +OMEP40CA2 PO; -PROPOFOL 200 MG/20 ML VIAL As Ordered; +ROSU10TA6 PO; +SENO8.6T9 OR; +SPIR-10 PO; +TRAV04OPD OU; +TRIAMTERENE PO; +TRIC145T19 PO; +TYLE325T5 PO; +XARE15TA PO
[2019-09-24 14:42] LABS: HEMATOCRIT 38.6 % (42.0-52.0); HEMOGLOBIN 12.3 g/dl (13.5-17.5); MEAN CORPUSCULAR HGB CONC 31.9 g/dl (32.0-36.5); MEAN CORPUSCULAR VOLUME 97.2 fl (80.0-96.0); PLATELET COUNT, AUTOMATED 143 10^3/uL (150-450); RED BLOOD COUNT 3.97 10^6/uL (4.30-6.10); WHITE BLOOD COUNT 7.2 10^3/uL (4.0-10.0)
[2019-09-24 15:03] LABS: CALCIUM LEVEL 9.3 MG/DL (8.8-10.2); CREATININE FOR GFR 1.9 MG/DL (0.70-1.30); GLOMERULAR FILTRATION RATE 35.7 (>35); PERCENT SATURATION 24.8 % (19.7-50.0)
[2019-09-24 19:19] LABS: HEMOGLOBIN A1c 6.2 %
== END ==
LOC: M SFHCPLAZ 09:55
PROVIDERS: ATTEND Family Medicine
DX: D50.0 Iron deficiency anemia secondary to blood loss (chronic) (principal); E11.9 Type 2 diabetes mellitus without complications; N18.3 Chronic kidney disease, stage 3 (moderate)
CPT/HCPCS: 36415; 80048; 82728; 83036; 83550; 85027; G0463

== ENCOUNTER → 2019-12-20 | Outpatient (REF) | payer MEDICARE, OTHER | LOC: M LAB REF 18:19 | PROVIDERS: ATTEND Dermatology | DX: D04.62 Carcinoma in situ of skin of left upper limb, including shoulder (principal); D22.5 Melanocytic nevi of trunk | CPT/HCPCS: 11102; 11103; 88305; G0463 ==

== ENCOUNTER → 2019-12-26 | Outpatient (REF) | payer MEDICARE, OTHER ==
[2019-12-26 18:29] LABS: HEMATOCRIT 39.5 % (42.0-52.0); HEMOGLOBIN 12.8 g/dl (13.5-17.5); MEAN CORPUSCULAR HEMOGLOBIN 30.6 pg (27.0-33.0); MEAN CORPUSCULAR HGB CONC 32.4 g/dl (32.0-36.5); MEAN CORPUSCULAR VOLUME 94.5 fl (80.0-96.0); PLATELET COUNT, AUTOMATED 145 10^3/uL (150-450); RED BLOOD COUNT 4.18 10^6/uL (4.30-6.10); WHITE BLOOD COUNT 6.6 10^3/uL (4.0-10.0)
[2019-12-26 18:52] LABS: HEMOGLOBIN A1c 6.4 %
[2019-12-26 18:58] LABS: CALCIUM LEVEL 9.4 MG/DL (8.8-10.2); CREATININE FOR GFR 1.97 MG/DL (0.70-1.30); GLOMERULAR FILTRATION RATE 34.3 (>35); POTASSIUM SERUM 4.5 MEQ/L (3.5-5.1)
== END ==
LOC: M SFHCPLAZ 15:27
PROVIDERS: ATTEND Family Medicine
DX: E11.9 Type 2 diabetes mellitus without complications (principal); N18.3 Chronic kidney disease, stage 3 (moderate); D50.8 Other iron deficiency anemias; Z23 Encounter for immunization
CPT/HCPCS: 36415; 80048; 83036; 85027; 90670; G0009

== ENCOUNTER → 2020-01-09 | Outpatient (REF) | payer MEDICARE, OTHER | LOC: M LAB REF 09:45 | PROVIDERS: ATTEND Dermatology | DX: L57.8 Other skin changes due to chronic exposure to nonionizing radiation (principal) ==